=== PATIENT | female | born 2005 | race Caucasian/White ===

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

== ENCOUNTER 2024-09-13 11:48 | Emergency (ER) | payer SELFPAY ==
[2024-09-13 11:56] VITALS: BP 119/63; PULSE 68; RESP 20; TEMP 36.8; O2SAT 100
[2024-09-13 12:17] VITALS: BP 119/63; PULSE 68; RESP 20; TEMP 36.8; O2SAT 100
--- NOTE | 2024-09-13 12:30 | ED_ITS ---
HPI - URI/Sore Throat General Chief Complaint: Upper Respiratory Infection Stated Complaint: Ear ache/cough/nose Time Seen by Provider: 09/13/24 12:30 Source: patient, RN notes reviewed and old records reviewed Mode of arrival: ambulatory Limitations: no limitations History of Present Illness HPI Narrative: 19 year old female accompanied by family with complaints of over one week duration of head congestion and drainage which she noted to be bloody at times, sinus pressure and frontal headache, some cough and increase in the left ear pain with some yellowish drainage noted from ear. Patient reports that she has not had any fevers. Patient reports that she has been taking Tylenol and OTC cold and flu medication for her symptoms with no improvement. MD elicited complaint: cough, rhinorrhea, nasal congestion and other (left ear pain) Onset (ago): week(s) (greater than one week) Severity: severe (pain left ear) Description of mucous: clear Able to tolerate fluids by mouth: Yes Treatments prior to arrival: acetaminophen and other (OTC cold and flu medication) Related Data Home Medications Medication Instructions Recorded Confirmed etonogestrel 68 mg subdermal 1 implant subdermal ONCE 02/10/21 09/13/24 implant (Nexplanon) Allergies Allergy/AdvReac Type Severity Reaction Status Date / Time No Known Allergies Allergy Verified 09/13/24 12:12 Review of Systems Review of Systems: CONSTITUTIONAL: Reports malaise, no chills, sweats, or fever. EYES: Denies visual changes, redness, or discharge. ENT: Reports rhinorrhea, congestion, sinus pain,left otalgia and no sore throat. CARDIOVASCULAR: Denies chest pain, palpitations, or edema. RESPIRATORY: Reports cough.? Denies dyspnea. GASTROINTESTINAL: Denies abdominal pain, nausea, vomiting, diarrhea SKIN: Denies rash or itching. MUSCULOSKELETAL: Denies myalgia. NEUROLOGIC: reports headache. All systems reviewed & are unremarkable except as noted in HPI and below PMFSH Past Medical History Medical History Anxiety Irritability and anger Surgical History Surgical History History of placement of ear tubes History of repair of congenital cleft palate X3 Social History Social History Smoking status: Never smoker Second hand tobacco smoke exposure: Yes Alcohol intake: never Substance use: never Living arrangements: with family Gender identity (if verbalized by the patient): Female Comments At time of signature, agree with nursing past medical, surgical, social and family history. There is no relevant family history pertinent to the presenting complaint Exam Narrative: GENERAL: Well-appearing, well-nourished, and in no acute distress. HEAD: Normocephalic EYES: PERRLA, conjunctivae clear ENT: Nares clear, turbinates edematous and erythematous, clear discharge, sinus pressure and frontal headache. Mucous membranes moist., TM's pearly young with dull light reflex bilaterally ; no tragal tenderness some soft wax noted to left ear. Oropharynx erythematous without lesions. Tonsils not enlarged and without exudate, no drooling, no hoarseness, no trismus, uvula midline.post nasal drainage. NECK: Supple. No lymphadenopathy CHEST: Clear to auscultation, breath sounds equal. No wheezing, rhonchi, rales, or stridor. No respiratory distress, speaks in full sentences.cough SAO2 100% on room air HEART: Regular rate and rhythm. No murmur heard. SKIN: Warm, dry, no rash. NEURO: Alert and oriented x3. PSYCH: Normal mood and affect Course Course Emergency Course: Patient is aware of diagnosis, understands and agrees to treatment plan.? Anticipatory guidance given.? Patient agrees to follow-up as directed and is aware of reasons to seek care at the emergency department. Portions of this record may have been created with voice recognition software Level of Care: Express Care Visit Vital Signs Vital signs: Vital Signs Temperature 36.8 C 09/13/24 11:56 Pulse Rate 68 09/13/24 11:56 Respiratory Rate 20 09/13/24 11:56 Blood Pressure 119/63 09/13/24 11:56 Pulse Oximetry 100 09/13/24 11:56 Oxygen Delivery Room Air 09/13/24 11:56 Temperature 36.8 C 09/13/24 12:17 Pulse Rate 68 09/13/24 12:17 Respiratory Rate 20 09/13/24 12:17 Blood Pressure 119/63 09/13/24 12:17 Pulse Oximetry 100 09/13/24 12:17 Oxygen Delivery Room Air 09/13/24 12:17 Reviewed MDM - URI/Sore Throat MDM Narrative Medical decision making narrative: Differential diagnosis considered: Frausto virus, strep pharyngitis, allergic rhinitis, upper respiratory tract infection, sinusitis, rhinosinusitis, nasopharyngitis. viral pharyngitis, otitis media, otitis externa, pneumonia, bronchitis, viral cough syndrome, viral syndrome, and influenza.? Exam findings show no acute concerns or changes; patient is non-toxic appearing and is in no distress.? Patient is appropriate for outpatient treatment and follow-up. Differential Diagnosis Differential diagnosis: Likely upper respiratory infection, otitis media, sinusitis, viral infection and other (cough, left otalgia) Medical Records Attestation: I reviewed the patient's medical records. Lab Data Attestation: I reviewed the patient's lab results. Critical Care Time Critical Care Time Critical Care Time: No Discharge Plan Discharge Clinical Impression: Sinusitis, Otalgia, left ear Patient Disposition: Home, Self-Care Condition: Stable Instructions: Antibiotic Form, Sinusitis (ED), Earache (ED) Additional Instructions: Increase fluids especially juices and water [id number] cough and cold medicine of your choice for your symptoms Zyrtec Claritin or Halina daily Tylenol or ibuprofen for any fever pain heat to the face 20-30 minutes 4-6 times a day for pain Salt water gargles, throat lozenges or throat sprays as desired Antibiotic as directed--finished the medication If your symptoms persist, change or worsen significantly before you can contact your personal physician then please, without delay, go to the emergency department for further evaluation. Follow-up with PCP in 7-10 days or sooner if needed Prescriptions: New amoxicillin 875 mg tablet 875 mg PO Q12H Qty: 20 0RF No Action Nexplanon 68 mg Implant 1 implant SUBDERMAL ONCE Follow-up/Referrals: PHYSICIAN,BUSINESS DATABASE ANALYST [Primary Care Provider] - Time of Disposition: 13:06 [place] Coma Scale Eyes: Open Verbal: Oriented and Alert Motor: Follows Commands Ina Coma Total Score: 15
== END 2024-09-13 13:10 | disposition home or self-care (01) ==
PROVIDERS: Emergency Provider Registered Nurse
DX: J32.9 Chronic sinusitis, unspecified (principal); H92.02 Otalgia, left ear
CPT/HCPCS: 99213; G0463

== ENCOUNTER 2024-10-28 13:57 | Emergency (ER) | payer SELFPAY ==
[2024-10-28 14:05] VITALS: BP 121/59; PULSE 78; RESP 16; TEMP 36.9; O2SAT 100
--- NOTE | 2024-10-28 14:32 | ED.EAR ---
HPI - Ear Problem General Chief complaint: Ear Stated complaint: Headache Time Seen by Provider: 10/28/24 14:32 Source: patient Mode of arrival: ambulatory Limitations: no limitations History of Present Illness HPI Narrative: 19 y/o female presented for c/o headache and bilateral ear pain x6 days. Taking Tylenol and ibuprofen without relief. Also taking OTC BCP from [facility], which she discontinued 2 days ago but did not have relief in pain. Endorses nausea and 'not feeling well' today. MD Complaint: ear pain Related Data Home Medications ?Medication ?Instructions ?Recorded ?Confirmed ?Last Taken ?Type No Home Medications 10/28/24 10/28/24 Unknown History Allergies Allergy/AdvReac Type Severity Reaction Status Date / Time No Known Allergies Allergy Verified 10/28/24 14:24 Review of Systems Review of Systems: CONSTITUTIONAL: Denies malaise, chills, or fever. EYES: Denies visual changes, redness, or discharge. ENT: Denies rhinorrhea, congestion, sinus pain, and sore throat. Reports ear pain CARDIOVASCULAR: Denies chest pain, palpitations, or edema. RESPIRATORY: Denies cough or dyspnea. GASTROINTESTINAL: Denies abdominal pain, vomiting, diarrhea SKIN: Denies rash or itching. MUSCULOSKELETAL: Denies myalgia. NEUROLOGIC: reports headache. All systems reviewed & are unremarkable except as noted in HPI and below PMFSH Past Medical History Medical History Irritability and anger Anxiety Surgical History Surgical History History of placement of ear tubes History of repair of congenital cleft palate X3 Social History Social History Smoking status: Never smoker Second hand tobacco smoke exposure: Yes Alcohol intake: never Substance use: never Living arrangements: with family Gender identity (if verbalized by the patient): Female Comments At time of signature, agree with nursing past medical, surgical, social and family history. There is no relevant family history pertinent to the presenting complaint Exam Narrative: GENERAL: Well-appearing EYES: PERRLA, conjunctivae clear ENT: Nares clear. Mucous membranes moist. TMs pearly young with dull light reflex bilaterally; no tragal tenderness. Oropharynx not erythematous without lesions. no drooling, no hoarseness, no trismus, uvula midline. NECK: Supple. No lymphadenopathy CHEST: Clear to auscultation, breath sounds equal. No wheezing, rhonchi, rales, or stridor. No respiratory distress, speaks in full sentences. HEART: Regular rate and rhythm. No murmur heard. SKIN: Warm, dry, no rash. NEURO: Alert and oriented x3. PSYCH: Normal mood and affect Course Course Emergency Course: Patient is aware of diagnosis, understands and agrees to treatment plan. Anticipatory guidance given. Patient agrees to follow-up as directed and is aware of reasons to seek care at the emergency department. Portions of this record may have been created with voice recognition software Level of Care: Express Care Visit Vital Signs Vital signs: Vital Signs Temperature 98.5 F 10/28/24 14:05 Pulse Rate 78 10/28/24 14:05 Respiratory Rate 16 10/28/24 14:05 Blood Pressure 121/59 L 10/28/24 14:05 Pulse Oximetry 100 10/28/24 14:05 Oxygen Delivery Room Air 10/28/24 14:05 Temperature 98.5 F 10/28/24 14:05 Pulse Rate 78 10/28/24 14:05 Respiratory Rate 16 10/28/24 14:05 Blood Pressure 121/59 L 10/28/24 14:05 Pulse Oximetry 100 10/28/24 14:05 Oxygen Delivery Room Air 10/28/24 14:05 Reviewed Medical Decision Making MDM Narrative Medical decision making narrative: neg strep. Advised supportive measures and signs/symptoms to go to the ER. Patient is appropriate for outpatient treatment and follow-up. Differential Diagnosis Differential Diagnosis: Coronavirus, strep pharyngitis, allergic rhinitis, upper respiratory tract infection, sinusitis, rhinosinusitis, nasopharyngitis, viral pharyngitis, otitis media, otitis externa, eustachian tube dysfunction, foreign body, cerumen impaction. Vital Signs Vital Signs: Vital Signs Temperature 98.5 F 10/28/24 14:05 Pulse Rate 78 10/28/24 14:05 Respiratory Rate 16 10/28/24 14:05 Blood Pressure 121/59 L 10/28/24 14:05 Pulse Oximetry 100 10/28/24 14:05 Oxygen Delivery Room Air 10/28/24 14:05 Temperature 98.5 F 10/28/24 14:05 Pulse Rate 78 10/28/24 14:05 Respiratory Rate 16 10/28/24 14:05 Blood Pressure 121/59 L 10/28/24 14:05 Pulse Oximetry 100 10/28/24 14:05 Oxygen Delivery Room Air 10/28/24 14:05 Discharge Plan Discharge Clinical Impression: Headache Patient Disposition: Home, Self-Care Condition: Stable Instructions: Antibiotic Form, General Headache (ED) Additional Instructions: Recommend Flonase spray and Zyrtec (or Claritin/Halina) Tylenol 1000mg , ibuprofen 600 mg every 8 hours as needed for pain Symptomatic treatment includes: rest, fluids, and increase humidity of the air at home. Follow up with your primary care provider in 1 week. Go to the ER for worsening symptoms or concerns. Patient Language: Somali Prescriptions: No Action No Home Medications Follow-up/Referrals: PHYSICIAN,MILLED RICE BROKER [Primary Care Provider] - Time of Disposition: 14:41
--- OUTSIDE RECORDS SUMMARY | 2024-11-01 10:43 | XMS_ITS | Referral Summary ---
Author Organization [facility] Address [address] [place] [address] Care Team Providers Care Data Warehousing Engineer Name Role Phone Unavailable Primary Care Provider Unavailabl e Source Comments [facility],non-owned Affiliates and Associated Physician Practices is amultiple site organization consisting of ambulatory clinics and hospital sitesin [place], [place], [place] and [place]. This disclosure is being madepursuant to the Care Everywhere program and may not contain all information available regarding this patient. Last updated 18.[facility] [employer] Social History Tobacco Use Types Packs/Day Years Used Date Smoking Tobacco: Never Assessed Sex and Gender Information Value Date Recorded Sex Assigned at Not on file Gender Identity Not on file Sexual Orientation Not on file Plan of Treatment Not on file
--- OUTSIDE RECORDS SUMMARY | 2024-11-01 10:43 | XMS_ITS | Continuity of Care Document ---
Author Organization [facility] Address [address] [place] [address] Phone Care Team Providers Care Pe Electrical Engineer Name Role Phone Romeo OD, Edilberto Unavailable Unavailable Procedures Procedure Date Eye Exam & Treatment Refraction Eye Exam & Treatment Refraction Eye Exam, New Patient Refraction Advance Directives Directive Yes / No Effective Date File Name No Information Encounters Encounter Description Practice Location Reason(s) For Visit Diagnoses Date Provider Providers Copied on Encounter [facility], [address] [place] [address] [address], [place], [place], [id number], tel:[phone] [facility] No Information 4-201 0 Romeo OD Edilberto. [address], [place], [place], [facility], [place]. tel:[phone] [facility], [address] [place] [address] [address], [place], [place], [id number], [place] tel:[phone] [facility] [place] No Information 2-200 9 Romeo OD Edilberto. [address], [place], [address], [place]. tel:[phone] [facility], [address] [place] [address] [address], [place], [place], [id number], tel:[phone] [facility] No Information 9-200 8 Romeo OD Edilberto. [address], [place], [address], [place]. tel:[phone] Family History Family Member Type Diagnosis Age At Onset No Information Payers Payer name Insurance type Covered alliance party ID Authoriza tibrad(s) Medicaid [facility] [id number] Social History Type Description Quantity Date Captured Comments Sex Female Smoking Status No Information Chief Complaint And Reason For Visit No Information Reason For Referral Reason For Referral No Information History Of Present Illness Encounter Date Complaint History Of Prese nt Illness No Information Functional Status Date Functional Assessmen t No Information Instructions Date Instruction Additional Infor mation No Information Assessments Type Assessment Date No Information Patient Care Teams Name Effective Dates (start - stop) Status Members No Information
--- OUTSIDE RECORDS SUMMARY | 2024-11-01 10:43 | XMS_ITS | Clinical Summary ---
Author Organization [facility] Address [address] [place] [address] Care Team Providers Care [place] Name Role Phone No, Physician Primary Care Provider [phone] Allergies No known active allergies Medications nitrofurantoin monohydrate (MACROBID) 100 mg capsule Take 1 capsule (100 mg total) by mouth 2 (two) times a day 10 capsule 07/21/20 21 Active ondansetron ODT (ZOFRAN-ODT) 4 mg disintegrating tablet Dissolve 1 tablet oral every 4 hours as needed for nausea or vomiting. 15 tablet 07/21/20 21 Active benzonatate (TESSALON) 100 mg capsuleIndications :Cough Take 1 capsule (100 mg total) by mouth every 8 (eight) hours 21 capsule 09/03/20 23 Active ondansetron ODT (ZOFRAN-ODT) 4 mg disintegrating tablet Take 1 tablet (4 mg total) by mouth every 8 (eight) hours as needed for nausea Collaborating physician Fernando García MD 10 tablet 07/17/20 24 Active Active Problems Problem Noted Date Diagnosed Date Urinary tract infection in female 07/17/2024 Vaginal irritation 07/17/2024 Dysfunction of eustachian tube 01/17/2017 Cleft palate, unspecified 06/14/2014 Surgical History Surgery Date Site/Laterality Comments TYMPANOSTOMY TUBE PLACEMENT Ear Pressure Equalization Tube, Insertion, Bilaterally - (Added by TW Conv) TYMPANOSTOMY TUBE PLACEMENT Ear Pressure Equalization Tube, Insertion, Bilaterally - (Added by TW Conv) PALATOPLASTY Palatoplasty For Cleft Palate - (Added by TW Conv) Social History Tobacco Use Types Packs/Day Years Used Date Smoking Tobacco: Never Personal Safety Answer Date Recorded Have you ever been in or are you currently in a harmful physical or emotional relationship or is someone making you feel afraid or unsafe? 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 Gender Identity Not on file Sexual Orientation Not on file Obstetrics History Last Filed Vital Signs Vital Sign Reading Time Taken Comments Blood Pressure 136/77 07/17/2024 8:20 PM CDT Pulse 92 07/17/2024 8:20 PM CDT Temperature 36.6 ??C (97.9 ??F) 07/17/2024 5:55 PM CD T Respiratory Rate 16 07/17/2024 8:20 PM CDT Oxygen Saturation 100% 07/17/2024 5:55 PM CDT Inhaled Oxygen Concentration - - Weight 59 kg (130 lb) 07/17/2024 5:55 PM CDT Height 162.6 cm (5' 4 ) 07/17/2024 5:55 PM CDT Body Mass Index 22.31 07/17/2024 5:55 PM CDT Plan of Treatment Health Maintenance Due Date Last Done Comments Depression Screening 2004 Hepatitis C Screening 2004 Meningococcal B Vaccine (1 o f 2 - Patient Seeks Protection) 2020 Regular Well Visit/Exam 18-64 2022 Influenza Vaccine (#1) 2024 9, 06/16/2016, 12/03/2009, Additional history exists DTaP/Tdap/Td Vaccine (7 - Td or Tdap) 06/16/2026 06/16/2016, 05/22/2009, 10/19/2005, Additional history exists Pneumococcal vaccine <65 Completed 006, 07/19/2005, 2004, Additional history exists Varicella Vaccines Completed 05/25/2010, 07/19/2005 HPV Vaccines Completed 07/26/2017, 06/16/2016 Meningococcal Vaccine Completed 03/03/2022, 016 Insurance [employer] [place] [employer] [place] [place] Care Teams [place] Relationship Specialty Start Date End Date No, Physician PCP - General 07/17/24
--- OUTSIDE RECORDS SUMMARY | 2024-11-01 10:43 | XMS_ITS | Clinical Summary ---
Author Organization [facility] Address [address] [place] [address] Phone Care Team Providers Care Dovetail Machine Operator Name Role Phone Mel Merida MD Primary Care Provider + Allergies No known active allergies Medications hydrOXYzine (ATARAX) 10 MG Tablet TAKE 1 TABLET BY MOUTH EVERY MORNING AND TAKE 2 TABLETS BY MOUTH EVERY EVENING 1 Active fluticasone (FLONASE) 50 MCG/ACT Suspension 1-2 Sprays by Nasal route daily. Use in each nostril as directed. 9.9 mL 2 Active polyethylene glycol (MiraLax) 17 GM/SCOOP Powder Take 17 g by mouth daily. 17 g = 1 scoop. Dissolve in 4 -8 oz of water or other liquid. 507 g 2 Active Additional Information Patient not taking.Reported on 10/22/2022 pantoprazole (PROTONIX) 40 MG Tablet Delayed Response Take 1 Tablet by mouth daily. 30 Tablet 2 Active Additional Information Patient not taking.Reported on 10/22/2022 Benzoyl Peroxide (Benzoyl Peroxide Wash) 5 % Liquid Wet skin areas to be treated prior to administration. Gently massage into skin for 10 to 20 seconds, working into a full lather. Rinse thoroughly and pat dry. Use once daily in shower. 236 mL 2 3 Active Additional Information Patient not taking.Reported on 12/01/2022 Active Problems Problem Noted Date Diagnosed Date Ruptured tympanic membrane, bilateral 03/03/2022 Assessment & Plan (03/03/2022 3:14 PM CDT): Referred to ENT. Unsure if ever healed post T-tubes. Migraine without aura and wi thout status migrainosus, not intractable 12/18/2020 Assessment & Plan (03/03/2022 3:14 PM CDT): Now only occurring with ear pain- she has been referred to ENT as both TMs are ruptured, unsure if ever healed s/p T-tubes. Assessment & Plan (12/18/2020 5:40 PM POWERSAW SUPERVISOR): Pt told to keep headache diary to better assess frequency and associated symptoms. Red flags of headaches including pain awakening pt from sleep, vomiting after awakening, changes in vision or mental status, persistent vomiting, increasing frequency of headaches, and worsening of headaches discussed with patient and parent. Recommended eating 3 nutritious meals per day, drinking 60oz of water daily, and bettering her sleep hygiene. Pt to take Ibuprofen 400mg at start of headaches. Good sleep hygiene discussed with pt including dim lights, no electronics 1-2 hours before bedtime, no tv in bedroom, white noise machine, and reading books instead of being on handheld electronics. Acne 01/17/2020 Overview (01/17/2020): 11/2017- HC 2.5%. 09/2016- HC 1%. Assessment & Plan (03/03/2022 3:09 PM CDT): Only present on arms and back- BPO 5% wash prescribed. Mild depression 01/17/2020 Overview (01/17/2020): 09/2018- Recommended talking to school about bullying. Assessment & Plan (03/03/2022 3:13 PM CDT): PHQ9 positive for mild depression, no thoughts of self harm, suicide, homicide. Recommended counseling which pt refused. Will have her return to clinic in 3mo and see how she is doing. Allergic rhinitis 01/17/2020 Overview (01/17/2020): 05/2006- Claritin. Assessment & Plan (03/03/2022 3:09 PM CDT): Stable without meds. Acute midline low back pain without sciatica 07/2020 Assessment & Plan (03/03/2022 3:11 PM CDT): This problem is still occurring for pt intermittently. I did get a UA on her to ensure kidneys are doing well as her last UA samples have had abnormalities although no UTIs were present. I asked her to fix her posture as well. No spinal tenderness on exam. Will follow up in 3mo and see how pt doing. Assessment & Plan (10/19/2019 2:00 PM POWERSAW SUPERVISOR): Supportive care recommended with stretching, rest, and avoiding aggravating factors. Tylenol or Motrin as needed for pain. Return to office if symptoms worsen or do not improve. Menorrhagia 08/30/2019 Assessment & Plan (03/03/2022 3:11 PM CDT): Pt with irregular menses after getting implant. Asked pt to follow with OBGYN after tracking periods which she has not been doing. Seizures 03/06/2019 Assessment & Plan (03/03/2022 3:09 PM CDT): Mom states that this issue has been resolved since infancy for pt. Assessment & Plan (03/06/2019 8:56 AM CDT): Dad states that pt previously had seizures but has not had one in several years. He marked no for seizures on school physical form, but I corrected this statement as pt does have a history of them. Dad unsure where pt was followed for this, as there are no Care Everywhere records for any Neurologist. Dad asked to find out name of Neurologist so medical records can be obtained. Encounter for routine child health examination with abnormal findings 03/06/2019 Overview (01/17/2020): 07/2017- Last WCC with [facility]. Assessment & Plan (03/03/2022 3:12 PM CDT): Anticipatory guidance done including seat belt safety and water safety. Fire safety and bug avoidance discussed. Sexual preferences, safe sex practices, and discussion on healthy relationships discussed. Maintaining healthy friendships, bullying, and mental health also discussed. Handout given to reiterate important points. Routine lipid screening ordered. 5-2-1-0 (5 fruits and vegetables per day, less than 2 hours of screen time per day, at least 1 hour of activity per day, and 0 sweetened beverages) also discussed. Hearing and vision screens passed. Vaccines updated today. Hearing Screening Edited by: Meaghan Flannery 125hz 250hz 500hz 1000hz 2000hz 3000hz 4000hz 6000hz 8000hz Right ear 20 20 20 Left ear 20 20 20 Vision Screening Edited by: Meaghan Flannery Right eye Left eye Both eyes Without correction 20/25 20/25 20/25 Assessment & Plan (03/06/2019 9:08 AM CDT): Anticipatory guidance done including seat belt safety and water safety. Fire safety and bug avoidance discussed. Sexual preferences, safe sex practices, and discussion on healthy relationships discussed. Maintaining healthy friendships, bullying, and mental health also discussed. Handout given to reiterate important points. 5-2-1-0 (5 fruits and vegetables per day, less than 2 hours of screen time per day, at least 1 hour of activity per day, and 0 sweetened beverages) also discussed. Vaccines UTD. Vision screen passed. PHQ2 negative for depression. Told pt and Dad that all periods must now be recorded to ensure that pt is regular and has no other concerns around her period. Vision Screening Right eye Left eye Both eyes Without correction 20/25 20/25 20/20 Learning problem 03/06/2019 Assessment & Plan (03/03/2022 3:13 PM CDT): Pt doing well with IEP. Assessment & Plan (03/06/2019 9:07 AM CDT): Requested NASEEM from parent for school so we can obtain pt's IEP and see what diagnosis is and if we can further help in pt's treatment in any way. 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 Assessment & Plan (03/06/2019 9:00 AM CDT): Pt seeing Cleft Palate multidisciplinary team at [facility] as she is s/p cleft palate repair. Dad states next appointment is in March or April, coming up. Resolved Problems Problem Noted Date Diagnosed Date Resolved Date COVID-19 10/20/2021 03/03/2022 Assessment & Plan (10/20/2021 10:23 PM POWERSAW SUPERVISOR): Supportive care recommended with normal saline nose drops and Flonase to alleviate congestion, exposing pt to steam in bathrooms from showers or baths of family members, and use of humidifiers in bedrooms. Dad explained red flags of respiratory distress including labored breathing, increased respiratory rate, color change, and retractions. Supportive care recommended with Acetaminophen and Ibuprofen as needed for pain and fevers. Rapid COVID positive. Pt to isolate for 10 days from symptom onset. Explained limitations of this visit due to lack of physical exam in time of trying to limit COVID exposure. Pt and/or mat making machine tender verbalized understanding of these limitations and agreed to proceed with the treatment plan, with agreement to call or seek help if conditions worsen. Urinary frequency 02/26/2020 03/03/2022 Assessment & Plan (02/26/2020 4:13 PM CDT): 3 day history of urinary frequency and urgency. UA ordered with reflex to culture. Will call dad with results when they are received. Plan: - Encouraged adequate fluid intake - Don? t resist the urge to urinate, void at frequent intervals (every 3 to 4 hours). - Change tampons and sanitary napkins frequently. - Do not douche. - Wipe front to back, or from urethra/vagina toward the anus. Wheezing-associated respirat ory infection (WARI) 01/17/2020 03/03/2022 Overview (01/17/2020): 01/2006- Amoxil, Alb inhaler. School avoidance 10/19/2019 03/03/2022 Assessment & Plan (10/19/2019 2:03 PM POWERSAW SUPERVISOR): Discussed with mom and patient importance of going to school and that school excuses are not provided unless patient is febrile, vomiting, or having diarrhea within the 24 hours prior to the beginning of the school day. Discussed importance of counseling with mom and patient and offered Behavioral Health Navigator referral to get patient started in counseling. Mom would like to wait as patient's dad states that he has an appointment for patient to begin counseling at the beginning of November. Told mom that if this appointment does not happen or they change their minds and would like our assistance with starting counseling, to please call our office and I will put in the referral. Mother verbalized understanding. Note provided for school for today's visit only. Other specified condition influencing health 9 03/03/2022 Ringworm, body 04/23/2019 10/19/2019 Assessment & Plan (04/23/2019 8:23 AM CDT): Lesions appear consistent with tinea. Clotrimazole prescribed. Discussed use of topical cream with patient. Call office for worsening of symptoms or no improvement with cream. Failed hearing screening 03/06/2019 Assessment & Plan (03/06/2019 9:07 AM CDT): Dad told that he should inform [facility] ENT that pt failed her most recent hearing screen at PCP office as pt will be seeing ENT as part of her multidisciplinary cleft palate team. Hearing Screening 125hz 250hz 500hz 1000hz 2000hz 3000hz 4000hz 6000hz 8000hz Right ear 40 20 20 Left ear 40 20 20 Encounter for examination fo r admission to educational institution 03/06/2019 03/03/2022 Assessment & Plan (03/06/2019 10:07 AM CDT): School physical form completed today. Dysfunction of eustachian tube 01/17/2017 03/03/2022 Assessment & Plan (03/06/2019 9:02 AM CDT): Pt sees ENT at [facility] in conjunction with her Cleft Palate team. Dad states next appointment is in March or April. Immunizations Immunization Administration Dates Next Due DTAP VACCINE 10/19/2005,2004 DTAP-IPV 05/22/2009 DTAP/HEPB/IPV Vaccine 02/26/2005,2004 Hepatitis A, Pediatric, Unsp ecified Formulation 04/23/2008,01/26/2006 Hepatitis B Vaccine, Pediatric/adolescent 2004,2004 Hib Vaccine,unspecified Formulation 10/10,02/26/2005,2004,09/24 Human Papillomavirus (HPV) 9 -valent Vaccine 07/26/2017,06/16/2016 Inactivated Polio Vaccine 2004 Influenza Vaccine, Quadrivalent, PF 07/02/2019,0 06/16/2016 MMR Vaccine 10/19/2005 MMRV 05/25/2010 Meningococcal MCV4O 03/03/2022 Meningococcal Vaccine 06/16/2016 Novel [id number], Preservative-free, Injectable 12/03/2009,09/15/2009 Pneumococcal Vaccine Peds - 7 Valent ,07/19/2005,2004,09/24 TDAP Vaccine 06/16/2016 Varicella Vaccine Live 07/19/2005 Family History Medical History Relation Name Comments Bipolar Disorder Paternal Grandmother Diabetes Paternal Grandmother Relation Name Status Comments Paternal Grandmother Social History Tobacco Use Types Packs/Day Years Used Date Smoking Tobacco: Never Passive Smoke Exposure: Yes Smokeless Tobacco: Never Tobacco Cessation:Counseling Given: Not Answered Alcohol Use Standard Drinks/Week Comments No 0 (1 standard drink = 0.6 oz pur e alcohol) PHQ-2 Answer Date Recorded Total Score - Questions 1-9 4 02/08 Comments No Sex and Gender Information Value Date Recorded Sex Assigned at Not on file Legal Sex Female 1:12 PM CDT Gender Identity Not on file Sexual Orientation Not on file Last Filed Vital Signs Vital Sign Reading Time Taken Comments Blood Pressure 108/68 10/22/2022 7:35 AM POWERSAW SUPERVISOR Pulse 65 10/22/2022 7:35 AM POWERSAW SUPERVISOR Temperature 36.6 ??C (97.9 ??F) 10/22/2022 7:35 AM CS T Respiratory Rate 20 10/22/2022 7:35 AM POWERSAW SUPERVISOR Oxygen Saturation 99% 10/22/2022 7:35 AM POWERSAW SUPERVISOR Inhaled Oxygen Concentration - - Weight 56.7 kg (125 lb) 10/22/2022 7:35 AM POWERSAW SUPERVISOR Height 149.9 cm (4' 11 ) 10/22/2022 7:35 AM POWERSAW SUPERVISOR Body Mass Index 25.25 10/22/2022 7:35 AM POWERSAW SUPERVISOR Plan of Treatment Health Maintenance Due Date Last Done Comments Hepatitis C Virus (HCV) Screening 2004 Meningococcal B Immunization (1 of 2 - Standard) 2020 Influenza Immunization (#1) 2024 07/02/2019, 0 06/16/2016 SARS-COV-2 Immunization (1 - season) 2024 DTaP/Tdap/Td Immunization (7 - Td or Tdap) 06/16/2026 06/16/2016, 05/22/2009, 10/19/2005, Additional history exists Respiratory Syncytial Virus (RSV) Immunization (Adult) (1 - 1-dose 75+ series) 2079 Hepatitis B Immunization Completed 005, 2004, 2004, Additional history exists Pneumococcal Immunization Combined Aged Out 01/26/2006, 07/19/2005, 2004, Additional history exists No longer eligible based on patient's age to complete this topic Hepatitis A Immunization Discontinued 04/23/2008, 01/08 Polio (IPV) Immunization Discontinued 009, 02/26/2005, 2004, Additional history exists Measles Mumps Rubella (MMR) Immunization Discontinued 05/25/2010, 10/19/2005 Varicella Immunization Discontinued 05/25/2010, 2004 Human Papillomavirus (HPV) Immunization Completed 07/26/2017, 06/16/2016 Meningococcal Immunization (ACWY) Completed 03/03/2022, 06/16/2016 Rotavirus Immunization Aged Out No lo nger eligible based on patient's age to complete this topic Insurance Care Teams Dovetail Machine Operator Relationship Specialty Start Date End Date Mel Merida MD PCP - General Pediatrics 02/21/19
--- OUTSIDE RECORDS SUMMARY | 2024-11-01 10:43 | XMS_ITS | Referral Summary ---
Author Organization [facility] Address [address] [place] [address] Care Team Providers Care Infrastructure Security Architect Name Role Phone No, Physician Primary Care Provider [phone] Allergies No known active allergies Medications nitrofurantoin [...] eustachian tube 01/17/2017 Cleft palate, unspecified 06/14/2014 Social History Tobacco Use Types Packs/Day Years [...] on file Legal Sex Female 1:[address] MAN Gender Identity Not on file Sexual Orientation [...] 07/17/2024 5:55 PM CDT Plan of Treatment Not on file Insurance [employer] [place] Care Teams Infrastructure Security Architect Relationship Specialty Start Date End Date No, Physician PCP - General 07/17/24
--- OUTSIDE RECORDS SUMMARY | 2024-11-01 10:43 | XMS_ITS | Clinical Summary ---
Author Organization [facility] Address [address] [place] [address] Care Team Providers Care Poker Supervisor Name Role Phone Unavailable Primary Care Provider Unavailabl e Source Comments [facility],non-owned Affiliates and Associated Physician Practices is amultiple site organization consisting of ambulatory clinics and hospital sitesin [place], [place], [place] and [place]. This disclosure is being madepursuant to the Care Everywhere program and may not contain all information available regarding this patient. Last updated 18.[facility] Contacts+ Social History Tobacco Use Types Packs/Day Years Used Date Smoking Tobacco: Never Assessed Sex and Gender Information Value Date Recorded Sex Assigned at Not on file Gender Identity Not on file Sexual Orientation Not on file Plan of Treatment Health Maintenance Due Date Last Done Comments HIV SCREENING 2019 HPV VACCINE (1 - 3-dose series) 2019 CHLAMYDIA/GONORRHEA SCREENING 2020 MENINGOCOCCAL (Group B) VACCINE (1 of 2 - Standard) 2020 HEPATITIS C SCREENING 07/12/2022 DTAP/TDAP/TD VACCINES (1 - Tdap) 2023 HEPATITIS B VACCINE (1 of 3 - 19+ 3-dose series) 2023 COVID-19 VACCINE (1 - 2023-2 5 season) 2024 INFLUENZA VACCINE (#1) 2024 , 06/16/2016 DEPRESSION SCREENING 10/10/2024 ZOSTER VACCINE (1 of 2) 2054 HIB VACCINE Aged Out No longer eligi ble based on patient's age to complete this topic MENINGOCOCCAL VACCINE Aged Out No kaylee sofia eligible based on patient's age to complete this topic PNEUMOCOCCAL VACCINE Aged Out No long er eligible based on patient's age to complete this topic
--- OUTSIDE RECORDS SUMMARY | 2024-11-01 10:43 | XMS_ITS | Patient Health Summary ---
Author Organization [facility] Address [address] [place] [address] Care Team Providers Care Sizing Sprayer Name Role Phone Unavailable Primary Care Provider Unavailabl e Note from [facility],non-owned Affiliates and Associated Physician Practices is amultiple site organization consisting of ambulatory clinics and hospital sitesin [place], [place], [place] and [place]. This disclosure is being madepursuant to the Care Everywhere program and may not contain all information available regarding this patient. Last updated 18.[facility] Social History Tobacco Use Types Packs/Day Years Used Date Smoking Tobacco: Never Assessed Sex and Gender Information Value Date Recorded Sex Assigned at Not on file Gender Identity Not on file Sexual Orientation Not on file
== END 2024-10-28 14:55 | disposition home or self-care (01) ==
PROVIDERS: Emergency Provider Nurse Practitioner Family
DX: R51.9 Headache, unspecified (principal)
CPT/HCPCS: 87081; 99213; G0463

== ENCOUNTER 2024-11-29 15:53 | Emergency (ER) | payer MEDICAID, SELFPAY ==
--- OUTSIDE RECORDS SUMMARY | 2024-11-29 15:55 | XMS_ITS | Patient Health Summary ---
Author Organization [facility] Address [address] [place] [address] Care Team Providers Care Manager Floral Name Role Phone Unavailable Primary Care Provider Unavailabl e Note from [facility],non-owned Affiliates and Associated Physician Practices is amultiple site organization consisting of ambulatory clinics and hospital sitesin [place], [place] and [place]. This disclosure is being madepursuant to the Care Everywhere program and may not contain all information available regarding this patient. Last updated 18.[facility] Social History Tobacco Use Types Packs/Day Years Used Date Smoking Tobacco: Never Assessed Sex and Gender Information Value Date Recorded Sex Assigned at Not on file Gender Identity Not on file Sexual Orientation Not on file
--- OUTSIDE RECORDS SUMMARY | 2024-11-29 15:55 | XMS_ITS | Continuity of Care Document ---
Author Organization [facility] Address [address] [place] [address] Phone Care Team Providers Care Plate Molder Name Role Phone Romeo OD, Edilberto Unavailable Unavailable Procedures Procedure Date Eye Exam & Treatment Refraction Eye Exam & Treatment Refraction Eye Exam, New Patient Refraction Advance Directives Directive Yes / No Effective Date File Name No Information Encounters Encounter Description Practice Location Reason(s) For Visit Diagnoses Date Provider Providers Copied on Encounter [facility], [address] [place] [address] [address], [place], [place], [id number], tel:[phone] [facility] No Information 4-201 0 Romeo OD Edilberto. [address], [place], [place], [facility], [place]. tel:[phone] [facility], [address] [place] [address] [address], [place], [place], [id number], [place] tel:[phone] [facility] [address] No Information 2-200 9 Romeo OD Edilberto. [address], [place], [address], [place]. tel:[phone] [facility], [address] [place] [address] [address], [place], [place], [id number], tel:[phone] [facility] No Information 9-200 8 Romeo OD Edilberto. [address] [facility] , [address], [place], [address], [place]. tel:[phone] Family History Family Member Type Diagnosis Age At Onset No Information Payers Payer name Insurance type Covered alliance party ID Authoriza tibrad(s) Medicaid [facility] [id number] Social History Type Description Quantity Date Captured [...]
--- OUTSIDE RECORDS SUMMARY | 2024-11-29 15:55 | XMS_ITS | Clinical Summary ---
Author Organization [facility] Address [address] [place] [address] Care Team Providers Care Stock Worker Name Role Phone No, Physician Primary Care Provider [phone] Allergies No known active allergies Medications nitrofurantoin [...] on file Legal Sex Female 1:07 AM POSTMASTER RELIEF Gender Identity Not on file Sexual Orientation Not on file Obstetrics History Last Filed Vital Signs Vital Sign Reading Time Taken Comments Blood Pressure 136/77 07/17/2024 8:20 PM CDT Pulse 92 07/17/2024 8:20 PM CDT Temperature 36.6 C (97.9 F) 07/17/2024 5:55 PM CDT Respiratory Rate 16 07/17/2024 8:20 PM CDT [...] B Vaccine (1 o f 2 - Standard) 2020 Regular Well Visit/Exam 18-64 2022 Influenza Vaccine (#1) 2024 9, 06/16/2016, 12/03/2009, Additional history exists DTaP/Tdap/Td Vaccine (7 - Td or Tdap) 06/16/2026 06/16/2016, 05/22/2009, 10/19/2005, Additional history exists Hepatitis B Screening Completed 02/26/2005 , 2004, 2004, Additional history exists Pneumococcal vaccine <65 Completed 006, 07/19/2005, 2004, Additional history exists Varicella Vaccines Completed 05/25/2010, 07/19/2005 HPV Vaccines Completed 07/26/2017, 06/16/2016 Meningococcal Vaccine Completed 03/03/2022, 016 Insurance [employer] OPEN ACCESS [place] [employer] [place] Care Teams Stock Worker Relationship Specialty Start Date End Date No, Physician PCP - General 07/17/24
--- OUTSIDE RECORDS SUMMARY | 2024-11-29 15:55 | XMS_ITS | Clinical Summary ---
Author Organization [facility] Address [address] [place] [address] Phone Care Team Providers Care Gallery Or Museum Guide Name Role Phone Mel Merida MD Primary [...] T-tubes. Assessment & Plan (12/18/2020 5:40 PM BOX STACKER): Pt told to keep headache diary to [...] doing. Assessment & Plan (10/19/2019 2:00 PM BOX STACKER): Supportive care recommended with stretching, rest, and [...] 03/06/2019 Overview (01/17/2020): 07/2017- Last WCC with [facility]. Assessment & Plan (03/03/2022 3:12 PM [...] (03/03/2022 3:12 PM CDT): Cleft number at [facility] given to Mom to schedule as pt needs to follow up there. Assessment & Plan (03/06/2019 9:00 AM CDT): Pt seeing Cleft Palate multidisciplinary team at [facility] as she is s/p cleft palate repair. Dad states next appointment is in March or April, coming up. Resolved Problems Problem Noted Date Diagnosed Date Resolved Date COVID-19 10/20/2021 03/03/2022 Assessment & Plan (10/20/2021 10:23 PM BOX STACKER): Supportive care recommended with normal saline nose [...] trying to limit COVID exposure. Pt and/or nonfarm animal caretaker verbalized understanding of these limitations and agreed [...] Plan: - Encouraged adequate fluid intake - Don t resist the urge to urinate, void at frequent intervals (every 3 to 4 hours). - Change tampons and sanitary napkins frequently. - Do not douche. - Wipe front to back, or from urethra/vagina toward the anus. Wheezing-associated respirat ory infection (WARI) 01/17/2020 03/03/2022 Overview (01/17/2020): 01/2006- Amoxil, Alb inhaler. School avoidance 10/19/2019 03/03/2022 Assessment & Plan (10/19/2019 2:03 PM BOX STACKER): Discussed with mom and patient importance of [...] CDT): Dad told that he should inform [facility] ENT that pt failed her most recent [...] 9:02 AM CDT): Pt sees ENT at [facility] in conjunction with her Cleft Palate team. [...] Meningococcal MCV4O 03/03/2022 Meningococcal Vaccine 06/16/2016 Novel [id number], Preservative-free, Injectable 12/03/2009,09/15/2009 Pneumococcal Vaccine Peds - [...] Comments Blood Pressure 108/68 10/22/2022 7:35 AM BOX STACKER Pulse 65 10/22/2022 7:35 AM BOX STACKER Temperature 36.6 C (97.9 F) 10/22/2022 7:35 AM BOX STACKER Respiratory Rate 20 10/22/2022 7:35 AM BOX STACKER Oxygen Saturation 99% 10/22/2022 7:35 AM BOX STACKER Inhaled Oxygen Concentration - - Weight 56.7 kg (125 lb) 10/22/2022 7:35 AM BOX STACKER Height 149.9 cm (4' 11 ) 10/22/2022 7:35 AM BOX STACKER Body Mass Index 25.25 10/22/2022 7:35 AM BOX STACKER Plan of Treatment Health Maintenance Due Date [...] patient's age to complete this topic Insurance [place] [address] [address] [place] [address] Care Teams Gallery Or Museum Guide Relationship Specialty Start Date End Date Mel Merida MD PCP - General Pediatrics 02/21/19
--- OUTSIDE RECORDS SUMMARY | 2024-11-29 15:55 | XMS_ITS | Clinical Summary ---
Author Organization [facility] Address [address] [place] [address] Care Team Providers Care Industrial Relations Analyst Name Role Phone Unavailable Primary Care Provider Unavailabl e Source Comments [facility],non-owned Affiliates and Associated Physician Practices is amultiple site organization consisting of ambulatory clinics and hospital sitesin [place], [place], [place] and [place]. This disclosure is being madepursuant to the Care Everywhere program and may not contain all information available regarding this patient. Last updated 18.[facility] [employer] Social History Tobacco Use Types Packs/Day Years [...]
--- OUTSIDE RECORDS SUMMARY | 2024-11-29 15:55 | XMS_ITS | Referral Summary ---
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
--- OUTSIDE RECORDS SUMMARY | 2024-11-29 15:55 | XMS_ITS | Referral Summary ---
Author Organization [facility] Address [address] [place] [address] Care Team Providers Care Loss Control Engineer Name Role Phone Unavailable Primary Care Provider Unavailabl e Source Comments [facility],non-owned Affiliates and Associated Physician Practices is amultiple site organization consisting of ambulatory clinics and hospital sitesin [place], [place], [place] and [place]. This disclosure is being madepursuant to the Care Everywhere program and may not contain all information available regarding this patient. Last updated 18.[facility] [employer] Social History Tobacco Use Types Packs/Day Years Used Date Smoking Tobacco: Never Assessed Sex and Gender Information Value Date Recorded Sex Assigned at Not on file Gender Identity Not on file Sexual Orientation Not on file Plan of Treatment Not on file
--- OUTSIDE RECORDS SUMMARY | 2024-11-29 16:02 | XMS_ITS | Data Portability ---
Author Organization [facility] Address [address] [place] [address] Assessment No assessment recorded. Plan of Treatment Reminders Order Date Submit Date Provider Last Modified By Organization Details Last Modified Time Details Appointments NEW ALONZO T 30 2024 09:00A M Aby Cooney APN, RELIGIOUS ASSISTANT-C Not available Not available Not available Lab SARS CoV 2 RNA (COVID -19), QL, core composer feeder-PC R, respir atory specim en - pt had a runny nose and conges tion, loss of taste, needs neg test to return back to school [facility] 1015 on 2020 021 [email or web address] [facility] (Lab), [address] [place], [address], 01/30/2021 15:30:55 SARS CoV 2 RNA (COVID -19), QL, core composer feeder-PC R, respir atory specim en - [email or web address] 2pm 2019 020 CINTHIA [facility] (Lab), [address] [place], [address], 07/26/2020 19:02:21 Referral None record ed. Procedures None record ed. Surgeries None record ed. Imaging None record ed. Medication Orders None record ed. Patient TargetsNo targets recorded. Patient Instructions Encounter Date Encounter Id Patient Instructions Last Modified By Organization Details Last Modified Time 07/25/2020 [id number] Reviewed the following recommendations: -Stay home and separate from others as much as possible. -Monitor your symptoms and seek medical attention for trouble breathing, persistent chest pain, confusion, or bluish lips or face. -Wear a mask if you must be around other people. -Wash your hands often for 20 seconds with soap and water and clean high-touch surfaces daily -You may discontinue home isolation if your symptoms are improving, it has been 7 days since symptoms started, and you have been fever free for at least 3 days. [email or web address] Not available 07/25/2020 13:52:56 01/30/2021 [id number] Reviewed the following recommendations: -Stay home and separate from others as much as possible. -Monitor your symptoms and seek medical attention for trouble breathing, persistent chest pain, confusion, or bluish lips or face. -Wear a mask if you must be around other people. -Wash your hands often for 20 seconds with soap and water and clean high-touch surfaces daily -You may discontinue home isolation if your symptoms are improving and it has been 10 days since symptoms started. [email or web address] Not available 01/30/2021 15:30:50 Reason for Referral None Reported. Results Created Date Observation Date Name Description Value Unit Range Abnormal Flag Note LastModifiedBy Organization Detail LastModifiedTime 07/25/20 20 07/25/2020 SARS CoV 2 RNA (COVI D-19) , QL, core composer feeder-P CR, respi rator y speci men sars - cov - 2 PCR NEGATI VE mL Not Available [facility] (Lab) [address] [place], [address], 07/26/2020 19:02:21 07/25/20 20 07/25/2020 SARS CoV 2 RNA (COVI D-19) , QL, core composer feeder-P CR, respi rator y speci men covidcom1 COMME NTS: This assay is desig enrrique to detec t the RdRp and N genes of SARS- CoV-2 using nucle ic acid ampli ficat ion. A negat ousmane resul t does not precl ude the possi bilit y of 2019- nCoV infec tion since the adequ acy of sampl e colle ction and/o r low viral burde n may resul t in the prese nce of viral nucle ic acids level s below the hedy tical sensi tivit y of this test metho d. Not Available [facility] (Lab) [address] [place], [address], 07/26/2020 19:02:21 07/25/20 20 07/25/2020 SARS CoV 2 RNA (COVI D-19) , QL, core composer feeder-P CR, respi rator y speci men covidcom2 Posit ousmane resul ts are indic ative of the prese nce of SARS- CoV-2 RNA and do not rule out bacte rial infec tion or co-in fecti on with other virus es. Not Available [facility] (Lab) [address] [place], [address], 07/26/2020 19:02:21 07/25/20 20 07/25/2020 SARS CoV 2 RNA (COVI D-19) , QL, core composer feeder-P CR, respi rator y speci men covidcom3 Test resul ts shoul d be used along with other clini esmer obser vatio ns, patie nt histo ry, epide miolo gical infor matio n and labor atory data in makin g the diagn osis. Not Available [facility] (Lab) [address] [facility], [place], [address], 07/26/2020 19:02:21 07/25/20 20 07/25/2020 SARS CoV 2 RNA (COVI D-19) , QL, core composer feeder-P CR, respi rator y speci men covidcom4 This test has recei terell FDA Emerg ency Use Autho rizat ion and has been verif ied by [facility] . This test is only autho rized for the durat ion of the decla ratio n and the circu mstan marty that exist to justi fy the autho rizat ion of the emerg ency use of in vitro diagn ostic tests for the detec tion of SARS- CoV-2 virus and/o r diagn osis of COVID -19 infec tion under secti on 564 (b) (1) of the Act. 11 U.S.C . 360bb b-3 (b) (1), unles s the autho rizat ion is termi nated or revok ed soone r. Not Available [facility] (Lab) [address] [place], [address], 07/26/2020 19:02:21 07/25/20 20 07/25/2020 SARS CoV 2 RNA (COVI D-19) , QL, core composer feeder-P CR, respi rator y speci men covidcom5 [facility] is certi fied under CLIA- 88 as quali fied to perfo rm high compl exity testi ng. This testi ng was perfo rmed in the [facility] [place] [address] (CLIA Licen se #[id number], CAP #[id number], AU-ID #[id number]). Not Available [facility] (Lab) [address] [place], [address], 07/26/2020 19:02:21 07/25/20 20 07/25/2020 SARS CoV 2 RNA (COVI D-19) , QL, core composer feeder-P CR, respi rator y speci men covidcom6 Facts heet for healt hcare provi ders: https ://ww w.fda .gov/ media /1362 56/do wnloa d Facts heet for patie nts: https ://ww w.fda .gov/ media /1362 57/do wnloa d Not Available [facility] (Lab) [address] [place], [address], 07/26/2020 19:02:21 Result Notes None recorded. Medical Equipment None Reported. Medications Name Sig Start Date Stop Date Status Note LastModified by Organization Details LastModified Time benzonatate 100 mg capsule TAKE 1 CAPSULE BY MOUTH EVERY 8 HOURS active Not Available Not Available No t Available methylpredniso lone 4 mg tablets in a dose pack TAKE BY MOUTH DIRECTED ON INSIDE OF PACKAGE active Not Available Not Available No t Available Vitals None Recorded Social History None recorded. Functional Status None recorded. Mental Status None recorded. Family History Nothing Reported. Medical History No medical history recorded. Gynecological HistoryNo gynecological history recorded. Obstetrics History GPAL:G 0 P 0 0 0 0 Past Encounters Encounter ID Performer Location Encounter Start Date Encounter Closed Date Diagnosis/Indication Diagnosis SNOMED-CT Code Diagnosis ICD10 Code Diagnosis Note [id number] MELIDA YADAV NP Faisal fel[address] [place] [address] 07/25/2020 11:51:13 07/28/2020 07:23:53 Suspected COVID-19 811817944 Z03.89 [id number] BI EsquivelNora feliz [address] [place] [address] 01/30/2021 12:51:32 02/02/2021 07:10:54 Suspected COVID-19 580029833 Z03.89 Viral screening 87021954 4 Z11.52 D/w pt the current pandemic of COVID-19 and call for social isolation in order to blunt the curve and minimize risk and spread. Encouraged patient and family to take restrictio ns seriously. They have verbalized understand ing of such. Health Concerns Section Related Observation LastModified by Organization Detai ls LastModified Time None Recorded Concern Status LastModified by Organization Details LastModified Time None Recorded Advance Directives Directive None Recorded Payers Encounter Date Sequence Insurance Name Policy Number Policy Bhandari Covered Member ID Bhandari Member ID Guarantor Name 07/25/2020 1 [place] [id number] Adair Carranza February [id number] 01/30/2021 1 [place] [id number] Adair Carranza February [id number] Notes Date Note Type Note Provider Name and Address Organization Details Recorded Time 07/25/2020 text/html COVID ScreeningReported bypatient.Onset/Durati on of fever:no fever Associated Symptoms:no cough; no shortness of breathCOVID-19 Symptoms February 2020Reported bypatient.COVID-19 Signs and Symptomscough resolved; fever resolved; shortness of breath resolved; chills resolved; repeated shaking with chills resolved; muscle pain resolved; headache resolved; sore throat resolved; loss of taste or smell resolved; vomiting or diarrhea resolved; fatigue resolved; anorexia resolved Associated Symptoms:no sputum production; no wheezing; no vomiting; no diarrhea; no body aches; no nausea; no change in mental status; no hypotension; no tachycardia;runny nose pt had a runny nose and congestion today and yesterday MELIDA YADAV NP Attn: Accounting,[address] [facility], [place], [address], [facility] 07/25/2020 13:53:23 01/30/2021 text/html COVID ScreeningReported bypatient.Onset/Durati on of fever:no fever Associated Symptoms:no cough; no shortness of breathCOVID-19 Symptoms February 2020Reported bypatient.COVID-19 Signs and Symptomscough resolved; fever resolved; shortness of breath resolved; chills resolved; repeated shaking with chills resolved; muscle pain resolved; headache resolved; sore throat resolved;new loss of taste or smell; vomiting or diarrhea resolved; fatigue resolved; anorexia resolved Associated Symptoms:no sputum production; no wheezing; no vomiting; no diarrhea; no body aches; no nausea; no change in mental status; no hypotension; no tachycardia;runny nose 15 yo female ,spoke via phone with C/O,pt had a runny nose and congestion, loss of taste, needs neg test to return back to school SHAHAB Lara NP Attn: Accounting,[address] [facility], [place], [address], [facility] 01/30/2021 15:34:03 OBGyn Episode No OBEpisode recorded.
--- OUTSIDE RECORDS SUMMARY | 2024-11-29 16:02 | XMS_ITS | Continuity of Care Document ---
Author Organization [facility] Address [address] [place] [address] Phone Care Team Providers Care Motors And Controls Tester Name Role Phone Romeo OD, Edilberto Unavailable Unavailable Procedures Procedure Date Eye Exam & Treatment Refraction Eye Exam & Treatment Refraction Eye Exam, New Patient Refraction Advance Directives Directive Yes / No Effective Date File Name No Information Encounters Encounter Description Practice Location Reason(s) For Visit Diagnoses Date Provider Providers Copied on Encounter [facility], [address] [place] [address] [address], [place], [place], [id number], tel:[phone] [facility] No Information 4-201 0 Romeo OD Edilberto. [address], [place], [place], [facility], [place]. tel:[phone] [facility], [address] [place] [address] [address], [place], [place], [id number], [place] tel:[phone] [facility] [address] No Information 2-200 9 Romeo OD Edilberto. [address], [place], [address], [place]. tel:[phone] [facility], [address] [place] [address] [address], [place], [place], [id number], tel:[phone] [facility] No Information 9-200 8 Romeo OD Edilberto. [address] [facility] , [address], [place], [address], [place]. tel:[phone] Family History Family Member Type Diagnosis Age At Onset No Information Payers Payer name Insurance type Covered democrat ID Authoriza tibrad(s) Medicaid [facility] [id number] Social History Type Description Quantity Date Captured [...]
--- NOTE | 2024-11-29 16:07 | ED_ITS ---
HPI - URI/Sore Throat General Stated Complaint: sore throat History of Present Illness HPI Narrative: 19-year-old female presented for complaint of sore throat. Onset this morning. Also reports bilateral ear pain. Has not taken anything for symptoms. Denies cough, shortness of breath, wheezing nausea, vomiting, fevers myalgia, or lethargy. Related Data Home Medications ?Medication ?Instructions ?Recorded ?Confirmed ?Last Taken ?Type No Home Medications 10/28/24 11/29/24 Unknown History Allergies Allergy/AdvReac Type Severity Reaction Status Date / Time No Known Allergies Allergy Verified 11/29/24 16:10 Review of Systems Review of Systems: CONSTITUTIONAL: Denies body aches, fever, chills, or sweats. EYES: Denies visual changes, redness, or discharge. ENT: Reports sore throat Denies rhinorrhea, congestion, or otalgia. CARDIOVASCULAR: Denies chest pain, palpitations, or edema. RESPIRATORY: Denies dyspnea. GASTROINTESTINAL: Denies abdominal pain, nausea, vomiting, or diarrhea. SKIN: Denies rash, itching, or wounds. MUSCULOSKELETAL: Denies back pain, joint pain, or myalgia. NEUROLOGIC: Denies headache PMFSH Past Medical History Medical History Irritability and anger Anxiety Surgical History Surgical History History of placement of ear tubes History of repair of congenital cleft palate X3 Social History Social History Smoking status: Never smoker Second hand tobacco smoke exposure: Yes Alcohol intake: never Substance use: never Living arrangements: with family Gender identity (if verbalized by the patient): Female Exam Narrative: GENERAL: well-appearing, no acute distress. EYES: conjunctivae clear ENT: Mucous membranes moist. TM pearly young with normal light reflex bilaterally; no tragal tenderness. Oropharynx erythematous without lesions. Tonsils not enlarged and without exudate. No drooling, no hoarseness, no trismus, uvula midline. No tripod positioning, hot potato voice, or soft palate swelling. NECK: Supple. No lymphadenopathy CHEST: Clear to auscultation, breath sounds equal. No respiratory distress, speaks in full sentences. HEART: Regular rate and rhythm. No murmur heard. SKIN: Warm, dry, no rash. NEURO: Alert and oriented x3. Course Course Emergency Course: Patient is aware of diagnosis, understands and agrees to treatment plan. Anticipatory guidance given. Patient agrees to follow-up as directed and is aware of reasons to seek care at the emergency department. Portions of this record may have been created with voice recognition software Level of Care: Express Care Visit MDM - URI/Sore Throat MDM Narrative Medical decision making narrative: neg strep result reviewed with pt. Advise supportive treatments. Patient is appropriate for outpatient treatment and follow-up. Differential Diagnosis Differential diagnosis: Likely upper respiratory infection, otitis media, sinusitis, viral infection, influenza and pharyngitis Discharge Plan Discharge Clinical Impression: Pharyngitis Patient Disposition: Home, Self-Care Condition: Stable Instructions: Antibiotic Form, Strep Throat (ED) Additional Instructions: Rapid strep swab was negative today You will be notified in a few days if the culture comes back positive for strep, and appropriate antibiotics will be called in at that time. if symptoms are due to a viral illness, it is not treated with antibiotics. Viral symptoms can be present for up to 10-14 days. Tylenol every 8 hours as needed for pain/fever Soft foods, cool liquids, warm tea. Gargle with warm saltwater twice a day. Chloraseptic spray and throat lozenges. Rest and stay hydrated. --Follow up with your PCP --Go to the ER immediately if you cannot swallow your saliva, trouble breathing/wheezing, throat swelling, pain is persistent and severe Patient Language: Persian Prescriptions: No Action No Home Medications Follow-up/Referrals: PHYSICIAN,RADIO MECHANIC APPRENTICE [Primary Care Provider] - Time of Disposition: 16:20
[2024-11-29 16:08] VITALS: BP 121/64; PULSE 89; RESP 16; TEMP 36.8; O2SAT 100
[2024-11-29 16:20] LABS: EDSTREPNEGPOS1 Negative (Negative)
== END 2024-11-29 16:24 | disposition home or self-care (01) ==
PROVIDERS: Emergency Provider Nurse Practitioner Family
DX: J02.9 Acute pharyngitis, unspecified (principal)
CPT/HCPCS: 87081; 87880; 99213; G0463

== ENCOUNTER 2025-09-09 11:54 | Emergency (ER) | payer OTHER, SELFPAY ==
[2025-09-09 12:08] VITALS: BP 137/66; PULSE 82; RESP 16; TEMP 36.7; O2SAT 99
--- NOTE | 2025-09-09 12:22 | ED_ITS ---
HPI - URI/Sore Throat General Chief Complaint: Upper Respiratory Infection Stated Complaint: Sore Throat/Headache Time Seen by Provider: 09/09/25 12:23 Source: patient, RN notes reviewed and old records reviewed Mode of arrival: ambulatory Limitations: no limitations History of Present Illness HPI Narrative: 20 year old female accompanied by boyfriend and his mother presents to express care with complaints of awakening this morning with headache and has had a sore throat for 1 day duration. Patient reports no known fevers has not taken any medication for her symptoms. MD elicited complaint: sore throat and other (headache) Onset (ago): day(s) (1) Severity: mild Able to tolerate fluids by mouth: Yes Treatments prior to arrival: none Related Data Home Medications ?Medication ?Instructions ?Recorded ?Confirmed ?Last Taken ?Type etonogestrel 68 mg subdermal 1 implant subdermal ONCE 07/06/21 07/06/21 Unknown History implant (Nexplanon) loratadine 10 mg tablet mg 09/09/25 Unknown History norethindrone 1 mg-ethinyl tablet 09/09/25 Unknown Hi story estradiol 20 mcg (21)-iron 75 mg (7) tablet (Anjelica Fe 10/29 (28)) omeprazole 20 mg capsule,delayed mg 09/09/25 Unknown History release Allergies Allergy/AdvReac Type Severity Reaction Status Date / Time No Known Allergies Allergy Verified 09/09/25 12:06 Review of Systems Review of Systems: CONSTITUTIONAL: Denies malaise, chills, sweats, or fever. EYES: Denies visual changes, redness, or discharge. ENT: Reports no rhinorrhea, congestion, sinus pain, otalgia and +sore throat. CARDIOVASCULAR: Denies chest pain, palpitations, or edema. RESPIRATORY: Reports no cough.? Denies dyspnea. GASTROINTESTINAL: Denies abdominal pain, nausea, vomiting, diarrhea SKIN: Denies rash or itching. MUSCULOSKELETAL: Denies myalgia. NEUROLOGIC: reports headache. All systems reviewed & are unremarkable except as noted in HPI and below PMFSH Past Medical History Medical History Irritability and anger Anxiety Surgical History Surgical History History of placement of ear tubes History of repair of congenital cleft palate X3 Social History Social History Smoking status: Never smoker Second hand tobacco smoke exposure: Yes Alcohol intake: never Substance use: never Living arrangements: with family Gender identity (if verbalized by the patient): Female Comments At time of signature, agree with nursing past medical, surgical, social and family history. There is no relevant family history pertinent to the presenting complaint Exam Narrative: GENERAL: Well-appearing, well-nourished, and in no acute distress. HEAD: Normocephalic EYES: PERRLA, conjunctivae clear ENT: Nares clear, turbinates edematous and erythematous, clear discharge, headache. Mucous membranes moist. TM pearly young with dull light reflex bilaterally; no tragal tenderness. Oropharynx erythematous without lesions. Tonsils not enlarged and without exudate, no drooling, no hoarseness, no trismus, uvula midline.scant post nasal drainage NECK: Supple. No lymphadenopathy CHEST: Clear to auscultation, breath sounds equal. No wheezing, rhonchi, rales, or stridor. No respiratory distress, speaks in full sentences.no cough noted SAO2 99% on room air HEART: Regular rate and rhythm. No murmur heard. SKIN: Warm, dry, no rash. NEURO: Alert and oriented x3. PSYCH: Normal mood and affect Course Course Emergency Course: Patient is aware of diagnosis, understands and agrees to treatment plan.? Anticipatory guidance given.? Patient agrees to follow-up as directed and is aware of reasons to seek care at the emergency department. Portions of this record may have been created with voice recognition software Level of Care: Express Care Visit Vital Signs Vital signs: Vital Signs Temperature 36.7 C 09/09/25 12:08 Pulse Rate 82 09/09/25 12:08 Respiratory Rate 16 09/09/25 12:08 Blood Pressure 137/66 09/09/25 12:08 Pulse Oximetry 99 09/09/25 12:08 Oxygen Delivery Room Air 09/09/25 12:08 Temperature 36.7 C 09/09/25 12:08 Pulse Rate 82 09/09/25 12:08 Respiratory Rate 16 09/09/25 12:08 Blood Pressure 137/66 09/09/25 12:08 Pulse Oximetry 99 09/09/25 12:08 Oxygen Delivery Room Air 09/09/25 12:08 Reviewed MDM - URI/Sore Throat MDM Narrative Medical decision making narrative: Differential diagnosis considered: Frausto virus, strep pharyngitis, allergic rhinitis, upper respiratory tract infection, sinusitis, rhinosinusitis, nasopharyngitis. viral pharyngitis, otitis media, otitis externa, pneumonia, bronchitis, viral cough syndrome, viral syndrome, and influenza.? Exam findings show no acute concerns or changes; patient is non-toxic appearing and is in no distress.? Patient is appropriate for outpatient treatment and follow-up. Differential Diagnosis Differential diagnosis: Likely upper respiratory infection, viral infection, pharyngitis and other (strep pharyngitis) Medical Records Attestation: I reviewed the patient's medical records. Lab Data Attestation: I reviewed the patient's lab results. Lab results narrative: strep screen negative, culture sent Labs: Lab Results 09/09/25 Range/Units 12:06 POC Grp A Strep Screen Negative (Negative) reviewed Critical Care Time Critical Care Time Critical Care Time: No Discharge Plan Discharge Clinical Impression: Pharyngitis Qualifiers: Pharyngitis/tonsillitis etiology: unspecified etiology Qualified Code(s): J02.9 - Acute pharyngitis, unspecified Patient Disposition: Home Condition: Stable Instructions: Antibiotic Form, Pharyngitis (ED) Additional Instructions: Increase fluids especially juices and water [id number]-[id number] cough and cold medicine of your choice for your symptoms Zyrtec Claritin or Halina daily may include Coricidin brand decongestant due to elevation in blood pressure heat to the face 20-30 minutes 4-6 times a day for pain Salt water gargles, throat lozenges or throat sprays as desired Your strep test today was negative. A throat culture will be sent to the laboratory for further testing. IF the test is positive, you will receive a phone call within 48 hours and an appropriate antibiotic will be initiated at that time. Patient Language: Albanian Prescriptions: No Action Nexplanon 68 mg Implant 1 implant SUBDERMAL ONCE norethindrone-e.estradiol-iron [Anjelica Fe 10/29 (28)] 1 mg-20 mcg (21)/75 mg (7) tablet omeprazole 20 mg capsule,delayed release(DR/EC) loratadine 10 mg tablet Follow-up/Referrals: Cooney,Aby Mustafa APN [Primary Care Provider, Unknown] Time of Disposition: 12:34 Quality Warren Coma Scale Eyes: Open Verbal: Oriented and Alert Motor: Follows Commands Ina Coma Total Score: 15
[2025-09-09 12:34] LABS: EDSTREPNEGPOS1 Negative (Negative)
--- OUTSIDE RECORDS SUMMARY | 2025-09-09 13:20 | XMS_ITS | Clinical Summary ---
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 Gender Identity Not on file Sexual Orientation [...] 5:55 PM CDT Height 162.6 cm (5' 4) 07/17/2024 5:55 PM CDT Body Mass Index 22.31 07/17/2024 5:55 PM CDT Plan of Treatment Health Maintenance Due Date Last Done Comments Cervical Cancer Screening 2004 Depression Screening 2004 Hepatitis C Screening 2004 Meningococcal B Vaccine (1 o f 2 - Standard) 2020 Regular Well Visit/Exam 18-64 2022 Influenza Vaccine (#1) 2025 9, 06/16/2016, 12/03/2009, Additional history exists DTaP/Tdap/Td Vaccine (7 - Td or Tdap) 06/16/2026 06/16/2016, 05/22/2009, 10/19/2005, Additional history exists Hepatitis B Screening Completed 02/26/2005 , 2004, 2004, Additional history exists Pneumococcal vaccine <65 Completed 006, 07/19/2005, 2004, Additional history exists Varicella Vaccines Completed 05/25/2010, 07/19/2005 HPV Vaccines Completed 07/26/2017, 06/16/2016 Meningococcal Vaccine Completed 03/03/2022, 016 Insurance [facility] Care Teams Tool Tender Relationship Specialty Start Date End Date Aby Cooney NP [address] [place] [address] PCP - General Nurse Practitioner 03/18/25
--- OUTSIDE RECORDS SUMMARY | 2025-09-09 13:20 | XMS_ITS | Clinical Summary ---
Author Organization [facility] Address [address] [place] [address] Phone Care Team Providers Care Facilities Maintenance Technician Name Role Phone Unavailable Primary Care Provider Unavailabl e Allergies No known active allergies Medications hydrOXYzine [...] T-tubes. Assessment & Plan (12/18/2020 5:40 PM HOME HEALTH REGISTERED NURSE): Pt told to keep headache diary to [...] doing. Assessment & Plan (10/19/2019 2:00 PM HOME HEALTH REGISTERED NURSE): Supportive care recommended with stretching, rest, and [...] abnormal findings 03/06/2019 Overview (01/17/2020): 07/2017- Last [facility] with [facility]. Assessment & Plan (03/03/2022 3:12 PM [...] (03/03/2022 3:12 PM CDT): Cleft number at [facility] given to Mom to schedule as pt needs to follow up there. Assessment & Plan (03/06/2019 9:00 AM CDT): Pt seeing Cleft Palate multidisciplinary team at [facility] as she is s/p cleft palate repair. Dad states next appointment is in March or April, coming up. Resolved Problems Problem Noted Date Diagnosed Date Resolved Date COVID-19 10/20/2021 03/03/2022 Assessment & Plan (10/20/2021 10:23 PM HOME HEALTH REGISTERED NURSE): Supportive care recommended with normal saline nose [...] trying to limit COVID exposure. 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 [...] Meningococcal MCV4O 03/03/2022 Meningococcal Vaccine 06/16/2016 Novel [id number], Preservative-free, Injectable 12/03/2009,09/15/2009 Pneumococcal Vaccine Peds - [...] Comments Blood Pressure 108/68 10/22/2022 7:35 AM HOME HEALTH REGISTERED NURSE Pulse 65 10/22/2022 7:35 AM HOME HEALTH REGISTERED NURSE Temperature 36.6 C (97.9 F) 10/22/2022 7:35 AM HOME HEALTH REGISTERED NURSE Respiratory Rate 20 10/22/2022 7:35 AM HOME HEALTH REGISTERED NURSE Oxygen Saturation 99% 10/22/2022 7:35 AM HOME HEALTH REGISTERED NURSE Inhaled Oxygen Concentration - - Weight 56.7 kg (125 lb) 10/22/2022 7:35 AM HOME HEALTH REGISTERED NURSE Height 149.9 cm (4' 11) 10/22/2022 7:35 AM HOME HEALTH REGISTERED NURSE Body Mass Index 25.25 10/22/2022 7:35 AM HOME HEALTH REGISTERED NURSE Plan of Treatment Health Maintenance Due Date Last Done Comments Hepatitis C Virus (HCV) Screening 2004 Meningococcal B Immunization (1 of 2 - Standard) 2020 Influenza Immunization (#1) 2025 07/02/2019, 0 06/16/2016 SARS-COV-2 Immunization (1 - 2024- season) 2025 DTaP/Tdap/Td Immunization (7 - Td or Tdap) [...] (MMR) Immunization Discontinued 05/25/2010, 10/19/2005 Varicella Immunization Completed 05/25/2010, 2004 Human Papillomavirus (HPV) Immunization Completed 07/26/2017, 06/16/2016 Meningococcal Immunization (ACWY) Completed 03/03/2022, 06/16/2016 Rotavirus Immunization Aged Out No lo nger eligible based on patient's age to complete this topic [place] [address] [place] [address] [place] [address]
--- OUTSIDE RECORDS SUMMARY | 2025-09-09 13:20 | XMS_ITS | Clinical Summary ---
Author Organization [facility] Address [address] [place] [address] Care Team Providers Care Supervisor Sulfuric Acid Plant Name Role Phone Unavailable Primary Care Provider Unavailabl e Source Comments [facility],non-owned Affiliates and Associated Physician Practices is amultiple site organization consisting of ambulatory clinics and hospital sitesin [place], [place], [place] and [place]. This disclosure is being madepursuant to the Care Everywhere program and may not contain all information available regarding this patient. 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 Gender Identity Not on file Sexual Orientation Not on file Plan of Treatment Health Maintenance Due Date Last Done Comments HIV SCREENING 2019 HPV VACCINE (1 - 3-dose series) 2019 CHLAMYDIA/GONORRHEA SCREENING 2020 MENINGOCOCCAL (Group B) VACCINE SHARED DECISION-MAKING (1 of 2 - Standard) 2020 HEPATITIS C SCREENING 07/12/2022 DTAP/TDAP/TD VACCINES (1 - Tdap) 2023 HEPATITIS B VACCINE (1 of 3 - 19+ 3-dose series) 2023 DEPRESSION SCREENING 10/10/2024 COVID-19 VACCINE (1 - 2024-2 6 season) 2025 INFLUENZA VACCINE (#1) 2025 , 06/16/2016 ZOSTER VACCINE (1 of 2) 2054 HIB VACCINE Aged Out No longer eligi ble based on patient's age to complete this topic MENINGOCOCCAL GROUPS A/C/Y/W VACCINE Aged Out No longer eligible b ased on patient's age to complete this topic PNEUMOCOCCAL VACCINE Aged Out No long er eligible based on patient's age to complete this topic Insurance ANTHEM ANTHEM
--- OUTSIDE RECORDS SUMMARY | 2025-09-09 13:21 | XMS_ITS | Continuity of Care Document ---
Author Organization [facility] (Adult Med) Address [address] [place] [address] Care Team Providers Care Supervising Chef Name Role Phone ABY BARRERA Primary Care Provider Assessment No assessment recorded. Plan of Treatment Reminders Order Date Submit Date Provider Last Modified By Organization Details Last Modified Time Details Appointments ANY 15 2024 01:30P M Leonid Vigil MD Not available Not available Not available Lab urinalys is, dipstick 2024 025 In-Office Order, Internal Use Only DO Not Attach Compendium DO Not Attach Compendium, Do Not Delete/merge, [id number] 07/23/2025 16:04:44 culture, urine 2024 [place] [facility], [address], [place], [address], 07/25/2025 07:15:47 Referral None recorded . Procedures None recorded . Surgeries None recorded . Imaging None recorded . Medication Orders Miralax 17 gram/dos e oral powder 2024 025 [facility] [address] [place], [address], 07/23/2025 16:06:57 omeprazo le 20 mg capsule, delayed release 2024 025 [facility] [address] [place], [address], 07/23/2025 16:06:59 Patient TargetsNo targets recorded. Patient Instructions Encounter Date Encounter Id Patient Instructions Last Modified By Organization Details Last Modified Time 07/23/2025 [id number] painful urinatio n (dysuria): care instructions Not available 07/23/2025 16:04:44 A healthy lifestyle: care instructions Not available 07/23/2025 16:08:55 Continue all medications as prescribed. Not available 07/23/2025 16:09:03 follow up as needed Not available 07/23/2025 16:09:25 Reason for Referral None Reported. Results Created Date Observation Date Name Description Value Unit Range Abnormal Flag Note LastModifiedBy Organization Detail LastModifiedTime 07/23/2007/25/2025 URINE CULTU RE, UROLO GY JAISON P urine culture, urology workup FINAL REPORT Not Available [facility] ([facility]) [address] [facility] [address], [place], [address], 07/25/2025 07:15:47 07/23/2007/25/2025 URINE CULTU RE, UROLO GY JAISON P result 1 COMMEN T Mixed uroge nital marco antonio 3,000 Colon ies/m L Not Available [facility] ([facility]) [address] [facility] [address], [place], [address], 07/25/2025 07:15:47 07/23/2007/23/2025 urina lysis , dipst ick Leukocytes Trace Not Available In-Offi ce Order Internal Use Only DO Not Attach Compendium DO Not Attach Compendium, Do Not Delete/merge, 07/23/2025 15:47:36 07/23/2007/23/2025 urina lysis , dipst ick Nitrite negati ve Not Available In-Office Order Internal Use Only DO Not Attach Compendium DO Not Attach Compendium, Do Not Delete/merge, [id number] 07/23/2025 15:47:36 07/23/2007/23/2025 urina lysis , dipst ick Urobilinogen .2 Not Available In-Of fice Order Internal Use Only DO Not Attach Compendium DO Not Attach Compendium, Do Not Delete/merge, 07/23/2025 15:47:36 07/23/2007/23/2025 urina lysis , dipst ick Protein Negati ve Not Available In-Office Order Internal Use Only DO Not Attach Compendium DO Not Attach Compendium, Do Not Delete/merge, 07/23/2025 15:47:36 07/23/2007/23/2025 urina lysis , dipst ick pH 6.5 Not Available In-Office Order Internal Use Only DO Not Attach Compendium DO Not Attach Compendium, Do Not Delete/merge, 07/23/2025 15:47:36 07/23/2007/23/2025 urina lysis , dipst ick Blood Negati ve Not Available In-Office Order Internal Use Only DO Not Attach Compendium DO Not Attach Compendium, Do Not Delete/merge, 07/23/2025 15:47:36 07/23/2007/23/2025 urina lysis , dipst ick Specific [place] 1.015 Not Available In-Off ice Order Internal Use Only DO Not Attach Compendium DO Not Attach Compendium, Do Not Delete/merge, 07/23/2025 15:47:36 07/23/2007/23/2025 urina lysis , dipst ick Ketone Negati ve Not Available In-Office Order Internal Use Only DO Not Attach Compendium DO Not Attach Compendium, Do Not Delete/merge, 07/23/2025 15:47:36 07/23/2007/23/2025 urina lysis , dipst ick Bilirubin Negati ve Not Available In-Office Order Internal Use Only DO Not Attach Compendium DO Not Attach Compendium, Do Not Delete/merge, 07/23/2025 15:47:36 07/23/2007/23/2025 urina lysis , dipst ick Glucose Negati ve Not Available In-Office Order Internal Use Only DO Not Attach Compendium DO Not Attach Compendium, Do Not Delete/merge, 07/23/2025 15:47:36 07/23/2007/23/2025 urina lysis , dipst ick Appearance Clear Not Available In-Offi ce Order Internal Use Only DO Not Attach Compendium DO Not Attach Compendium, Do Not Delete/merge, [id number] 07/23/2025 15:47:36 07/23/2007/23/2025 urina lysis , dipst ick Color Yellow Not Available In-Office Order Internal Use Only DO Not Attach Compendium DO Not Attach Compendium, Do Not Delete/merge, [id number] 07/23/2025 15:47:36 Result Notes None recorded. Problems Name Problem SNOMED Code Status Onset Date Resolution Date Notes Provider Name and Address Organization Details Recorded Time Contraception care management Active 2024 Leonid Vigil MD Attn: [employer] ,[address] [place], [address] , [facility] 20:56:14 Overweight 677965018 Active 2024 Leonid Vigil MD Attn: [employer] ,[address] [place], [address] , [facility] 20:56:16 Problem Notes None recorded. Procedures Surgical History Date Name Laterality Status Provider Name and Address Organization Details Recorded Time repair of cleft palate completed Zhane Koenig MA [facility] 12/18/2024 11:43:00 Imaging Results None recorded. Procedure Notes None recorded. Medical Equipment None Reported. Allergies No known drug allergies Medications Name Sig Start Date Stop Date Status Note LastModified by Organization Details LastModified Time fluconazole 150 mg tablet TAKE ONE TABLET BY MOUTH A ONE-TIME DOSE 12/18 completed Not Available Not Available Not Available prednisone 20 mg tablet TAKE 2 TABLETS BY MOUTH IN THE MORNING WITH FOOD FOR 5 DAYS 07/23 completed Not Available Not Available Not Available amoxicillin 875 mg tablet TAKE 1 TABLET BY MOUTH EVERY 12 HOURS FOR 10 DAYS 12/18 completed Not Available Not Available Not Available benzonatate 100 mg capsule TAKE 1 CAPSULE BY MOUTH EVERY 8 HOURS 12/18 completed Not Available Not Available Not Available cephalexin 500 mg capsule TAKE 1 CAPSULE BY MOUTH THREE TIMES DAILY FOR 7 DAYS 12/18 completed Not Available Not Available Not Available sertraline 25 mg tablet TAKE 1 TABLET BY MOUTH ONCE DAILY 07/23 completed Not Available Not Available Not Available omeprazole 20 mg capsule,del ayed release TAKE 1 CAPSULE BY MOUTH ONCE DAILY active Not Available Not Available No t Available polyethylen e glycol 3350 17 gram/dose oral powder MIX 17 GRAMS IN LIQUID AND DRINK BY MOUTH EVERY DAY NEEDED FOR CONSTIPAT ION active Not Available Not Available No t Available methylpredn isolone 4 mg tablets in a dose pack TAKE BY MOUTH DIRECTED ON INSIDE OF PACKAGE 12/18 completed Not Available Not Available Not Available loratadine 10 mg tablet TAKE 1 TABLET BY MOUTH ONCE DAILY active Not Available Not Available No t Available loratadine 10 mg capsule Take 1 capsule every day by oral route. 07/23 completed Not Available Not Available Not Available Anjelica Fe 10/29 (28) 1 mg-20 mcg (21)/75 mg (7) tablet TAKE 1 TABLET BY MOUTH ONCE DAILY. MUST KEEP UPCOMING APPOINTME NT FOR FURTHER REFILLS. active Not Available Not Available No t Available Vitals Date Recorded Body height Body mass index (BMI) Body weight Respiratory rate Oxygen saturation Heart rate Body temperature Systolic And Diastolic Provider Name and Address Organization Details Last Updated DateTime 149.86 cm 30.3 kg/m2 95158.8 6 g 16 /min 99 % 70 /min 97.5 [degF] 116/80 mm[Hg] CELESTE Castellon [facility] 15:42:33 Social History Question Answer Notes LastModified by Organizat ion Details LastModified Time Tobacco Smoking Status Never Smoker Zhane Koenig MA [facility], [place] - [facility] 12/18/2024 11:42:49 Are You Blind Or Do You Have Difficulty Seeing? No Glasses Information not available 07/23/2025 What Is Your Level Of Caffeine Consumption? Moderate Tea, Soda Information not available 07/23/2025 In The 14 Days Before Symptom Onset, Have You Had Close Contact With A Laboratory-confir med COVID-19 While That Case Was Ill? No Information not available 07/23/2025 In The 14 Days Before Symptom Onset, Have You Had Close Contact With A Person Who Is Under Investigation For COVID-19 While That Person Was Ill? No Information not available 07/23/2025 Have You Been To An Area Known To Be High Risk For COVID-19? No Information not available 07/23/2025 Are You Deaf Or Do You Have Serious Difficulty Hearing? No Information not available 07/23/2025 What Type Of Diet Are You Following? REGULAR Information not available 07/23/2025 Are There Any Guns Present In Your Home? No Information not available 07/23/2025 What Was The Date Of Your Most Recent Tobacco Screening? 07/23/2025 Information not available 07/23/2025 How Many Children Do You Have? 0 Information not available 07/23/2025 What Is Your Relationship Status? Committed Partner(s) Information not available 07/23/2025 Do You Use Your Seat Belt Or Car Seat Routinely? Yes Information not available 07/23/2025 Do You Have Smoke And Carbon Monoxide Detectors In Your Home? Yes Information not available 07/23/2025 Are You Passively Exposed To Smoke? No Information no t available 07/23/2025 Do You Use Sunscreen Routinely? No Information not available 07/23/2025 Has Tobacco Cessation Counseling Been Provided? Yes [email or web address] Information not available 12/18/2024 On What Date Was Tobacco Cessation Counseling Provided? 07/23/2025 Information not available 07/23/2025 Sex: Female Functional Status Question Answer Note LastModified by Organizat ion Details LastModified Time Do you use any illicit or recreational drugs? No Information not available 07/23/2025 Do you or have you ever used any other forms of tobacco or nicotine? No Information not available 07/23/2025 What is your level of alcohol consumption? None Information not available 07/23/2025 Are you currently employed? No Information not available 07/23/2025 Are you able to care for yourself independently? Yes Information not available 07/23/2025 Mental Status Question Answer Note LastModified by Organization D etails LastModified Time Do you feel stressed (tense, restless, nervous, or anxious, or unable to sleep at night)? [id number] Information not available 07/23/2025 Family History Nothing Reported. Medical History Condition Response Coronary Artery Disease N Other N High Blood Pressure N Atrial Fibrillation N Thyroid Problems N Kidney or Bladder Problems N GI Problems N Depression N COPD N Blood Clots N Have you had a mammogram in the last yea r? N Skin Problems N Eating Disorder N Anemia N Heart Attack ([place]) N Anxiety Disorder N Diabetes N Muscle, Joint, or Bone Problems N Arthritis N Seizures/Epilepsy N Have you had a colonoscopy in the last 1 0 years? N Acid Reflux (GERD) N Cancer N Stroke N Asthma N Allergies N Have you had a PSA blood test in the las t year? N ADHD N Substance Abuse N High Cholesterol N Hepatitis N Liver Disease N Schizophrenia N Headaches N Heart Failure N Osteoporosis N Gynecological History Statement/Question Response Flow Moderate Date of LMP 07/05/2025 Menses Monthly Y Duration of Flow (days) 3 Current Control Method BCPs LMP Approximate Obstetrics History GPAL:G 0 P 0 0 0 0 Immunizations Vaccine Type Date Status Note Provider Nam e and Address Organization Details Recorded Time Hep B, adolescent or pediatric 4 completed Not Available [facility] 07/23/2025 15:25:22 pneumococcal conjugate PCV 7 4 completed Not Available [facility] 07/23/2025 15:25:22 DTaP-Hep B-IPV 4 completed Not Available [facility] 07/23/2025 15:25:22 Hib, unspecified formulation 4 completed Not Available [facility] 07/23/2025 15:25:22 Hib, unspecified formulation 5 completed Not Available [facility] 07/23/2025 15:25:22 IPV 5 completed Not Available [facility] 07/23/2025 15:25:22 DTaP 5 completed Not Available [facility] 07/23/2025 15:25:22 pneumococcal conjugate PCV 7 5 completed Not Available [facility] 07/23/2025 15:25:22 DTaP-Hep B-IPV 5 completed Not Available [facility] 07/23/2025 15:25:22 Hib, unspecified formulation 5 completed Not Available [facility] 07/23/2025 15:25:22 varicella 5 completed Not Available [facility] 07/23/2025 15:25:22 pneumococcal conjugate PCV 7 5 completed Not Available [facility] 07/23/2025 15:25:22 DTaP 6 completed Not Available [facility] 07/23/2025 15:25:22 Hib, unspecified formulation 6 completed Not Available [facility] 07/23/2025 15:25:22 MMR 6 completed Not Available [facility] 07/23/2025 15:25:22 pneumococcal conjugate PCV 7 6 completed Not Available [facility] 07/23/2025 15:25:22 Hep A, pediatric, unspecified formulation 6 completed Not Available [facility] 07/23/2025 15:25:22 Hep A, pediatric, unspecified formulation 8 completed Not Available [facility] 07/23/2025 15:25:22 DTaP-IPV 9 completed Not Available [facility] 07/23/2025 15:25:22 Novel [id number], preservative-free 9 completed Not Available [facility] 07/23/2025 15:25:22 influenza, split (incl. purified surface antigen) 9 completed Not Available [facility] 07/23/2025 15:25:22 influenza, split (incl. purified surface antigen) 0 completed Not Available [facility] 07/23/2025 15:25:22 Novel [id number], preservative-free 0 completed [facility] 07/[facility] 15:25:22 MMRV 0 completed [facility] 07/23/2025 15:25:22 meningococcal MCV4P 6 completed Not Available [facility] 07/23/2025 15:25:22 HPV9 6 completed Not Available [facility] 07/23/2025 15:25:22 Influenza, split virus, quadrivalent, PF 6 completed Not Available [facility] 07/23/2025 15:25:22 Tdap 6 completed Not Available [facility] 07/23/2025 15:25:22 HPV9 7 completed Not Available [facility] 07/23/2025 15:25:22 Influenza, split virus, quadrivalent, PF 9 completed Not Available [facility] 07/23/2025 15:25:22 Meningococcal MCV4O 2 completed Not Available [facility] 07/23/2025 15:25:22 Past Encounters Encounter ID Performer Location Encounter Start Date Encounter Closed Date Diagnosis/Indication Diagnosis SNOMED-CT Code Diagnosis ICD10 Code Diagnosis IMO Codes Diagnosis Note [id number] Windy fregoso, MD [facility] (Adult [facility]) [address] [place] [address] 07/23/2025 15:24:04 07/30/2025 11:39:53 Dysuria 03394219 R30.0 [id number] urine dip negative, will send for culture and notify pt if abx needed, dwp to increase fluids and RTO if increase in pain or fever or other changes occur. Gastroesop hageal reflux disease without esophagitis 994559157 K21.9 [id number] dwp diet changeswil l start ppi Chronic constipation 236 848117 K59.09 [id number] prn miralaxdwp diet changes Obese class I 2303046195 24796 E66.811 E66.3 [id number] advised low cholestero l diet, regular exercise and weight reduction. Health Concerns Section Related Observation LastModified by Organization Detai ls LastModified Time None Recorded Concern Status LastModified by Organization Details LastModified Time None Recorded Payers Encounter Date Sequence Insurance Name Policy Number Policy Bhandari Covered Member ID Bhandari Member ID Guarantor Name 07/23/2025 1 [facility] - DOS ON OR AFTER 21 (MEDICAID REPLACEMENT - HMO) Elza February [id number] Notes Date Note Type Note Provider Name and Address Organization Details Recorded Time 07/23/2025 text/html pt states she feels pressure in her stomach. states its been on and off. pt does get constipated and would like miralax. she went 4 days without a bowel movement but states she has been going more recently. states she has another week before her menstrual cycle again.pt states she has acid reflex and would like medicationpt would like a urine dip to check for UTI. denies sx but states she gets chronic uti Aby Barrera APN, [employer]-C Attn: [employer],[address] [facility], [place], [address], [facility] 07/23/2025 16:12:31 OBGyn Episode No OBEpisode recorded.
--- OUTSIDE RECORDS SUMMARY | 2025-09-09 13:22 | XMS_ITS | Data Portability ---
[facility] Address [address] [place] [address] Care Team Providers Care Senior Policy Analyst Name Role Phone HOLLY, ABY Primary Care Provider Assessment Encounter Date Assessment Date Assessment LastModified by Organization Details LastModified Time 12/18/2024 12/18/2024 RTC in 6 months with Ms Padmini [email or web address] Not available 12/18/2024 12:37:49 Plan of Treatment Reminders Order Date Submit Date Provider Last Modified By Organization Details Last Modified Time Details Appointments ANY 15 2024 01:30P Renetta Vigil MD Not available Not available Not available Lab urina lysis , dipst ick 2024 025 In-Office Order, Internal Use Only DO Not Attach Compendium DO Not Attach Compendium, Do Not Delete/merge, [id number] 07/23/2025 16:04:44 cultu re, urine 2024 025 [facility], [address], [place], [address], 07/25/2025 07:15:47 TSH, ultra -sens itive , serum 2024 025 [facility], [address], [place], [address], 03/12/2025 08:25:05 CMP, serum or plasm a 2024 025 [facility], [address], [place], [address], 03/12/2025 03:07:54 lipid panel , serum 2024 025 [facility], [address], [place], [address], 03/12/2025 03:07:53 CBC 2024 025 [facility], [address], [place], [address], 03/12/2025 03:07:56 vagin al patho gens panel , ZAN+p robe, vagin al fluid 2024 025 [facility], [address], [place], [address], 12/20/2024 08:30:31 urina lysis compl ete, refle x cultu re 2024 025 [facility], [address], [place], [address], 12/20/2024 06:20:35 CBC w/ auto diff 2024 025 [facility], [address], [place], [address], 12/19/2024 06:18:45 CMP, serum or plasm a 2024 025 [facility], [address], [place], [address], 12/19/2024 06:18:44 HbA1c (hemo globi n A1c), blood 2024 025 [facility], [address], [place], [address], 12/20/2024 06:20:36 lipid panel , serum 2024 025 [facility], [address], [place], [address], 12/19/2024 06:18:43 HIV 1 + 2, meani ngful use set 2024 [facility], [address] [place] [address], [address], [place], [address], 12/20/2024 06:20:40 RPR (rapi d plasm a reagi n), serum 2024 025 [facility], [address] [place] [address], [address], [place], [address], 12/20/2024 06:20:39 HBsAg (hepa titis B surfa ce Ag), EIA, serum 2024 025 [facility], [address] [place] [address], [address], [place], [address], 12/20/2024 06:20:37 Hepat itis C IgG Ab, qual, serum 2024 [facility], [address] [place] [address], [address], [place], [address], 12/20/2024 06:20:32 chlam ydia trach omati s + neiss eria gonor rhoea e + trich omona s vagin katherine rRNA panel , ZAN+p robe 2024 025 [facility], [address] [place] [address], [address], [place], [address], 12/20/2024 06:20:33 SARS CoV 2 RNA (COVI D-19) , QL, 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-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, respi rator y speci men - pt had a runny nose and conge stion , loss of taste , needs neg test to retur n back to [facility] on 02/02 021 [email or web address] [facility] (Lab), [address], [place], [address], 01/30/2021 15:30:55 SARS CoV 2 RNA (COVI D-19) , QL, 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-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 Surgeries None recor ded. Imaging None recor ded. Medication Orders Karen ax 17 gram/ dose oral powde r 2024 025 [facility], [address] [place] [address], [address], 07/23/2025 16:06:57 omepr azole 20 mg capsu le,de layed relea se 2024 025 [facility], [address] [place] [address], [address], 07/23/2025 16:06:59 Loest rin Fe 10/29 (28-D ay) 1 mg-20 mcg (21)/ 75 mg (7) table t 2024 025 [facility], [address] [place] [address], [address], 12/18/2024 12:23:05 Patient TargetsNo targets recorded. Patient Instructions Encounter Date Encounter Id Patient Instructions Last Modified By Organization Details Last Modified Time 07/25/2020 [id number] Reviewed the following recommendations: -Stay home and [...] days. [email or web address] Not available 07/25/2020 13:52:56 01/30/2021 [id number] Reviewed the following recommendations: -Stay home and [...] symptoms started. [email or web address] Not available 01/30/2021 15:30:50 12/18/2024 [id number] painful urination (dysuria): care instructions Not available 12/18/2024 12:22:39 A healthy lifestyle: care instructions Not available 12/18/2024 12:22:39 03/11/2025 [id number] A healthy lifestyle: care instructions Not available 03/11/2025 14:29:36 Increase intake of fresh fruits, and vegetables. Avoid packaged foods and fast foods. Follow a low salt diet, drink at least 8-10 8oz glasses of water a day, exercise most days of the week. Take all medications as prescribed. Keep appointments with PCP and all specialists. Not available 03/11/2025 14:17:31 follow up as needed, yearly to keep established with provider Not available 03/11/2025 14:17:34 07/23/2025 [id number] painful urination (dysuria): care instructions Not available 07/23/2025 16:04:44 A healthy lifestyle: care instructions Not available 07/23/2025 16:08:55 Continue all medications as prescribed. 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 Dysfunction of bilateral eustachian tubes Referring Physician: Aby Cooney, Family Medicine, Encounter Date: 03/11/2025 Results Created Date Observation Date Name Description Value Unit Range Abnormal Flag Note LastModifiedBy Organization Detail LastModifiedTime 07/25/2007/25/2020 SARS CoV 2 RNA (COVI D-19) , QL, 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-P CR, respi rator y speci men sars - cov - 2 PCR NEGATI VE mL Not Available [facility] (Lab) [address] [place], [address], 07/26/2020 19:02:21 07/25/2007/25/2020 SARS CoV 2 RNA (COVI D-19) , QL, 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-P CR, respi rator y speci men covidcom1 [...] of this test metho d. Not Available [facility] [address] [facility] [address] [facility], [place], [address], 07/26/2020 19:02:21 07/25/2007/25/2020 SARS CoV 2 RNA (COVI D-19) , QL, 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-P CR, respi rator y speci men covidcom2 Posit ousmane resul ts are indic ative of the prese nce of SARS- CoV-2 RNA and do not rule out bacte rial infec tion or co-in fecti on with other virus es. Not Available [facility] (Lab) [address] [place], [address], 07/26/2020 19:02:21 07/25/20 20 07/25/2020 SARS CoV 2 RNA (COVI D-19) , QL, 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-P CR, respi rator y speci men covidcom3 Test resul ts allegra d be used along with other clini esmer obser vatio ns, patie nt histo ry, epide miolo gical infor matio n and labor atory data in makin g the diagn osis. Not Available [facility] (Lab) [address], [place], [address], 07/26/2020 19:02:21 07/25/20 20 07/25/2020 SARS CoV 2 RNA (COVI D-19) , QL, 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-P CR, respi rator y speci men covidcom4 This test has recei teerll FDA Emerg ency Use Autho rizat ion and has been verif ied by [facility] . This test is only [...] or revok ed soone r. Not Available [facility] (Lab) [address], [place], [address], 07/26/2020 19:02:21 07/25/20 20 07/25/2020 SARS CoV 2 RNA (COVI D-19) , QL, 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-P CR, respi rator y speci men covidcom5 [facility] is certi fied under CLIA- 88 as quali fied to perfo rm high compl exity testi ng. This testi ng was [facility] [place] [address] (CLIA Licen se #[id number] [id number] 5, CAP #[id number], AU-ID #[id number]). Not Available [facility] (Lab) [address] [place], [address], 07/26/2020 19:02:21 07/25/20 20 07/25/2020 SARS CoV 2 RNA (COVI D-19) , QL, 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-P CR, respi rator y speci men covidcom6 Facts heet for healt hcare provi ders: https ://[employer] .gov/ media /1362 56/do wnloa d Facts heet for patie nts: https ://[employer] .gov/ media /1362 57/do wnloa d Not Available [facility] (Lab) [address], [place], [address], 07/26/2020 19:02:21 03/03/20 22 03/04/2022 Aspar banegas amino trans feras e [Enzy matic activ ity/v olume ] in Serum or Plasm a aspartate aminotransfe rase [enzymatic activity/vol ume] in serum or plasma 16 U/L high: 32U/L Not Available Not Available 03/11/2025 14:26:06 03/03/20 22 03/04/2022 Aspar banegas amino trans feras e [Enzy matic activ ity/v olume ] in Serum or Plasm a interpretati on and review of laboratory results Normal Not Available Not Available 11/2024 14:26:06 03/03/20 22 03/04/2022 Howard ne amino trans feras e [Enzy matic activ ity/v olume ] in Serum or Plasm a alanine aminotransfe rase [enzymatic activity/vol ume] in serum or plasma 11 U/L high: 41U/L Not Available Not Available 03/11/2025 14:26:06 03/03/20 22 03/04/2022 Howard ne amino trans feras e [Enzy matic activ ity/v olume ] in Serum or Plasm a interpretati on and review of laboratory results Normal Not Available Not Available 11/2024 14:26:06 03/03/20 22 03/04/2022 Lipid 1995 panel - Serum or Plasm a cholesterol [mass/volume ] in serum or plasma 205 mg/dL high: 200mg/ dL high Not Available Not Available 03/11/2025 14:26:06 03/03/20 22 03/04/2022 Lipid 1995 panel - Serum or Plasm a triglyceride [mass/volume ] in serum or plasma 129 mg/dL high: 150mg/ dL Not Available Not Available 03/11/2025 14:26:06 03/03/20 22 03/04/2022 Lipid 1995 panel - Serum or Plasm a cholesterol in HDL [mass/volume ] in serum or plasma 39.9 mg/dL low: 40mg/d L low Not Available Not Available 03/11/2025 14:26:06 03/03/20 22 03/04/2022 Lipid 1995 panel - Serum or Plasm a cholesterol in LDL [mass/volume ] in serum or plasma 139 mg/dL low: 5mg/dL high: 130mg/ dL high Not Available Not Available 03/11/2025 14:26:06 03/03/20 22 03/04/2022 Lipid 1996 panel - Serum or Plasm a cholesterol in VLDL [mass/volume ] in serum or plasma 26 mg/dL low: 5mg/dL high: 55mg/d L Not Available Not Available 03/11/2025 14:26:06 03/03/20 22 03/04/2022 Lipid 1995 panel - Serum or Plasm a cholesterol. total/choles terol in HDL [mass ratio] in serum or plasma 5.1 low: 0high: 4.4 high Not Available Not Available 03/11/2025 14:26:06 03/03/20 22 03/04/2022 Lipid 1995 panel - Serum or Plasm a cholesterol non HDL [mass/volume ] in serum or plasma 165.1 mg/dL high: 130mg/ dL high Not Available Not Available 03/11/2025 14:26:06 03/03/20 22 03/04/2022 Lipid 1996 panel - Serum or Plasm a IS the patient required to BE fasting? Yes 8 Not Available Not Available 03/11/2025 14:26:06 03/03/20 22 03/04/2022 Lipid 1996 panel - Serum or Plasm a has the patient been fasting? Yes Not Available Not Available 11/2024 14:26:06 03/03/20 22 03/04/2022 Lipid 1996 panel - Serum or Plasm a interpretati on and review of laboratory results Abnorm al Not Available Not Available 14:26:06 12/19/19 25 12/18/2024 LIPID PANEL cholesterol, total 179 mg/dL 100-19 9 Not Available [facility] Department [address] [place] [address], [address], 12/19/2024 06:18:43 12/19/19 25 12/18/2024 LIPID PANEL triglyceride s 88 mg/dL 0-149 Not Available [facility] Department [address] [place] [address], [address], 12/19/2024 06:18:43 12/19/19 25 12/18/2024 LIPID PANEL HDL cholesterol 38 mg/dL 40-999 below low normal Not Available [facility] Department [address] [place] [address], [address], 12/19/2024 06:18:43 12/19/19 25 12/18/2024 LIPID PANEL VLDL cholesterol esmer 18 mg/dL 5-40 Not Available [facility] Department [address] [place], [address], 12/19/2024 06:18:43 12/19/19 25 12/18/2024 LIPID PANEL LDL chol calc ([facility]) 135 mg/dL 0-99 above high normal Not Available [facility] Department [address] [place] [address], [address], 12/19/2024 06:18:43 12/19/19 25 12/18/2024 COMP. METAB OLIC PANEL (14) glucose 87 mg/dL 70-99 Not Available [facility] Department [address] [place] [address], [address], 12/19/2024 06:18:44 12/19/19 25 12/18/2024 COMP. METAB OLIC PANEL (14) BUN 14 mg/dL 6-20 Not Available [facility] Department [address] [place] [address], [address], 12/19/2024 06:18:44 12/19/19 25 12/18/2024 COMP. METAB OLIC PANEL (14) creatinine 0.54 mg/dL 0.76-1 .27 below low normal Not Available [facility] Department [address] [place] [address], [address], 12/19/2024 06:18:44 12/19/19 25 12/18/2024 COMP. METAB OLIC PANEL (14) eGFR 135 >=60 Units for eGFR value s are mL/mi n/1.7 3 The eGFR Calcu latio n has not been valid ated for patie nts under the age of 18. If test resul ts are displ ayed for a patie nt under the age of 18, disre ana that value . Not Available [facility] Department [address] [place] [address], [address], 12/19/2024 06:18:44 12/19/19 25 12/18/2024 COMP. METAB OLIC PANEL (14) BUN/creatini ne ratio 27 9-23 above high normal Not Available [facility] Department [address] [place] [address], [address], 12/19/2024 06:18:44 12/19/19 25 12/18/2024 COMP. METAB OLIC PANEL (14) sodium 141 mmol/ L 134-14 4 Not Available [facility] Department [address] [place] [address], [address], 12/19/2024 06:18:44 12/19/19 25 12/18/2024 COMP. METAB OLIC PANEL (14) potassium 4.0 mmol/ L 3.5-5. 2 Not Available [facility] Department [address] [place], [address], 12/19/2024 06:18:44 12/19/19 25 12/18/2024 COMP. METAB OLIC PANEL (14) chloride 105 mmol/ L 96-106 Not Available [facility] Department [address] [place], [address], 12/19/2024 06:18:44 12/19/19 25 12/18/2024 COMP. METAB OLIC PANEL (14) carbon dioxide, total 24 mmol/ L 20-29 Not Available [facility] Department [address] [place], [address], 12/19/2024 06:18:44 12/19/19 25 12/18/2024 COMP. METAB OLIC PANEL (14) calcium 9.4 mg/dL 8.7-10 .2 Not Available [facility] Department [address] [place], [address], 12/19/2024 06:18:44 12/19/19 25 12/18/2024 COMP. METAB OLIC PANEL (14) protein, total 6.7 g/dL 6.0-8. 5 Not Available [facility] Department [address] [place], [address], 12/19/2024 06:18:44 12/19/19 25 12/18/2024 COMP. METAB OLIC PANEL (14) albumin 4.6 g/dL 4.0-5. 0 Not Available [facility] Department [address] [place], [address], 12/19/2024 06:18:44 12/19/19 25 12/18/2024 COMP. METAB OLIC PANEL (14) globulin, total 2.1 g/dL 1.5-4. 5 Not Available [facility] Department [address] [place], [address], 12/19/2024 06:18:44 12/19/19 25 12/18/2024 COMP. METAB OLIC PANEL (14) A/G ratio 2.0 1.2-2. 2 Not Available [facility] Department [address] [place] [address], [address], 12/19/2024 06:18:44 12/19/19 25 12/18/2024 COMP. METAB OLIC PANEL (14) bilirubin, total 0.4 mg/dL 0.0-1. 2 Not Available [facility] Department [address] [place] [address], [address], 12/19/2024 06:18:44 12/19/19 25 12/18/2024 COMP. METAB OLIC PANEL (14) alkaline phosphatase 59 IU/L 44-121 Not Available [facility] Department [address] [place] [address], [address], 12/19/2024 06:18:44 12/19/19 25 12/18/2024 COMP. METAB OLIC PANEL (14) AST (SGOT) 18 U/L 0-40 Not Available [facility] Department [address] [place] [address], [address], 12/19/2024 06:18:44 12/19/19 25 12/18/2024 COMP. METAB OLIC PANEL (14) ALT (SGPT) 13 IU/L 0-32 Not Available [facility] Department [address] [place] [address], [address], 12/19/2024 06:18:44 12/19/19 25 12/18/2024 CBC WITH DIFFE RENTI AL/PL ATELE T WBC 6.3 x10e3 /uL 3.4-10 .8 Not Available [facility] Department [address] [place] [address], [address], 12/19/2024 06:18:45 12/19/19 25 12/18/2024 CBC WITH DIFFE RENTI AL/PL ATELE T RBC 4.72 x10e6 /uL 3.77-5 .28 Not Available [facility] Department [address] [place], [address], 12/19/2024 06:18:45 12/19/1912/18/2024 CBC WITH DIFFE RENTI AL/PL ATELE T hemoglobin 13.4 g/dL 11.1-1 5.9 Not Available [facility] Department [address] [place], [address], 12/19/2024 06:18:45 12/19/1912/18/2024 CBC WITH DIFFE RENTI AL/PL ATELE T hematocrit 41.1 % 34.0-4 6.6 Not Available [facility] Department [address] [place], [address], 12/19/2024 06:18:45 12/19/1912/18/2024 CBC WITH DIFFE RENTI AL/PL ATELE T MCV 87 fL 79-97 Not Available [facility] Department [address] [place], [address], 12/19/2024 06:18:45 12/19/1912/18/2024 CBC WITH DIFFE RENTI AL/PL ATELE T MCH 28.4 pg 26.6-3 3.0 Not Available [facility] Department [address] [place], [address], 12/19/2024 06:18:45 12/19/1912/18/2024 CBC WITH DIFFE RENTI AL/PL ATELE T MCHC 32.6 g/dL 31.5-3 5.7 Not Available [facility] Department [address] [place], [address], 12/19/2024 06:18:45 12/19/1912/18/2024 CBC WITH DIFFE RENTI AL/PL ATELE T RDW 12.6 % 11.5-1 4.5 Not Available [facility] Department [address] [place], [address], 12/19/2024 06:18:45 12/19/19 25 12/18/2024 CBC WITH DIFFE RENTI AL/PL ATELE T platelets 240 x10e3 /uL 150-45 0 Not Available [facility] Department [address] [place], [address], 12/19/2024 06:18:45 12/19/19 25 12/18/2024 CBC WITH DIFFE RENTI AL/PL ATELE T neutrophils 68 % notest b. Not Available [facility] Department [address] [place], [address], 12/19/2024 06:18:45 12/19/19 25 12/18/2024 CBC WITH DIFFE RENTI AL/PL ATELE T lymphs 26 % notest b. Not Available [facility] Department [address] [place], [address], 12/19/2024 06:18:45 12/19/19 25 12/18/2024 CBC WITH DIFFE RENTI AL/PL ATELE T monocytes 5 % notest b. Not Available [facility] Department [address] [place], [address], 12/19/2024 06:18:45 12/19/19 25 12/18/2024 CBC WITH DIFFE RENTI AL/PL ATELE T eos 1 % notest b. Not Available [facility] Department [address] [place], [address], 12/19/2024 06:18:45 12/19/19 25 12/18/2024 CBC WITH DIFFE RENTI AL/PL ATELE T basos 1 % notest b. Not Available [facility] Department [address] [place], [address], 12/19/2024 06:18:45 12/19/19 25 12/18/2024 CBC WITH DIFFE RENTI AL/PL ATELE T neutrophils (absolute) 4.3 x10e3 /uL 1.4-7. 0 Not Available [facility] Department [address] [place], [address], 12/19/2024 06:18:45 12/19/19 25 12/18/2024 CBC WITH DIFFE RENTI AL/PL ATELE T lymphs (absolute) 1.6 x10e3 /uL 0.7-3. 1 Not Available [facility] Department [address] [place], [address], 12/19/2024 06:18:45 12/19/19 25 12/18/2024 CBC WITH DIFFE RENTI AL/PL ATELE T monocytes(ab solute) 0.3 x10e3 /uL 0.1-0. 9 Not Available [facility] Department [address] [place], [address], 12/19/2024 06:18:45 12/19/19 25 12/18/2024 CBC WITH DIFFE RENTI AL/PL ATELE T eos (absolute) 0.1 x10e3 /uL 0.0-0. 4 Not Available [facility] Department [address] [place], [address], 12/19/2024 06:18:45 12/19/19 25 12/18/2024 CBC WITH DIFFE RENTI AL/PL ATELE T baso (absolute) 0.0 x10e3 /uL 0.0-0. 2 Not Available [facility] Department [address] [place], [address], 12/19/2024 06:18:45 12/19/19 25 12/18/2024 CBC WITH DIFFE RENTI AL/PL ATELE T immature granulocytes 0.2 % notest b. Not Available [facility] Department [address] [place], [address], 12/19/2024 06:18:45 12/19/19 25 12/18/2024 CBC WITH DIFFE RENTI AL/PL ATELE T immature grans (abs) 0.0 x10e3 /uL 0.0-0. 1 Not Available [facility] Department [address] [place], [address], 12/19/2024 06:18:45 12/19/19 25 12/18/2024 CBC WITH DIFFE RENTI AL/PL ATELE T NRBC 0 % 0-0 Not Available [facility] Department [address], [place], [address], 12/19/2024 06:18:45 12/19/19 25 12/19/2024 INTER PRETA TION: interpretati on: Commen t Not infec niharika with HCV unles s early or acute infec tion is suspe cted (whic h may be delay ed in an immun ocomp romis ed indiv idual ), or other evide nce exist s to indic ate HCV infec tion. Not Available [facility] ([facility]) [address] [place], [address], 12/20/2024 06:20:32 12/19/19 25 12/19/2024 HCV ANTIB DAIN RFX TO QUANT PCR HCV Ab NON REACTI VE nonrea ctive Not Available [facility] ([facility]) [address] [place], [address], 12/20/2024 06:20:32 12/19/19 25 12/20/2024 CT, NG, TRICH VAG BY ZAN chlamydia by ZAN NEGATI VE negati ve Not Available [facility] ([facility]) [address] [place], [address], 12/20/2024 06:20:33 12/19/19 25 12/20/2024 CT, NG, TRICH VAG BY ZAN gonococcus by ZAN NEGATI VE negati ve Not Available [facility] ([facility]) [address] [place], [address], 12/20/2024 06:20:33 12/19/19 25 12/20/2024 CT, NG, TRICH VAG BY ZAN trich vag by ZAN NEGATI VE negati ve Not Available [facility] ([facility]) [address] [facility], [place], [address], 12/20/2024 06:20:33 12/19/19 25 12/19/2024 MICRO SCOPI C EXAMI NATIO N WBC None seen /hpf 0-5 Not Available [facility] ([facility]) [address] [facility], [place], [address], 12/20/2024 06:20:34 12/19/19 25 12/19/2024 MICRO SCOPI C EXAMI NATIO N RBC 0-2 /hpf 0-2 Not Available [facility] ([facility]) [address] [facility], [place], [address], 12/20/2024 06:20:34 12/19/19 25 12/19/2024 MICRO SCOPI C EXAMI NATIO N epithelial cells (non renal) >10 /hpf 0-10 abnormal Not Available [facility] ([facility]) [address] [facility], [place], [address], 12/20/2024 06:20:34 12/19/19 25 12/19/2024 MICRO SCOPI C EXAMI NATIO N casts None seen /lpf nonese en Not Available [facility] ([facility]) [address] [place], [address], 12/20/2024 06:20:34 12/19/19 25 12/19/2024 MICRO SCOPI C EXAMI NATIO N bacteria Modera te nonese en/few abnormal Not Available [facility] ([facility]) [address] [place], [address], 12/20/2024 06:20:34 12/19/19 25 12/19/2024 UA/M W/RFL X CULTU RE, ROUTI NE specific gravity 1.024 1.005- 1.030 Not Available [facility] ([facility]) [address] [facility] [place], [address], 12/20/2024 06:20:35 12/19/19 25 12/19/2024 UA/M W/RFL X CULTU RE, ROUTI NE pH 7.0 5.0-7. 5 Not Available [facility] ([facility]) [address] [facility], [place], [address], 12/20/2024 06:20:35 12/19/19 25 12/19/2024 UA/M W/RFL X CULTU RE, ROUTI NE urine-color YELLOW yellow Not Available [facility] ([facility]) [address] [facility], [place], [address], 12/20/2024 06:20:35 12/19/19 25 12/19/2024 UA/M W/RFL X CULTU RE, ROUTI NE appearance CLEAR clear Not Available [facility] ([facility]) [address] [facility], [place], [address], 12/20/2024 06:20:35 12/19/19 25 12/19/2024 UA/M W/RFL X CULTU RE, ROUTI NE WBC esterase NEGATI VE negati ve Not Available [facility] ([facility]) [address] [facility], [place], [address], 12/20/2024 06:20:35 12/19/19 25 12/19/2024 UA/M W/RFL X CULTU RE, ROUTI NE protein NEGATI VE negati ve/tra ce Not Available [facility] ([facility]) [address] [facility], [place], [address], 12/20/2024 06:20:35 12/19/19 25 12/19/2024 UA/M W/RFL X CULTU RE, ROUTI NE glucose NEGATI VE negati ve Not Available [facility] ([facility]) [address] [place], [address], 12/20/2024 06:20:35 12/19/19 25 12/19/2024 UA/M W/RFL X CULTU RE, ROUTI NE ketones NEGATI VE negati ve Not Available [facility] ([facility]) [address] [facility], [place], [address], 12/20/2024 06:20:35 12/19/19 25 12/19/2024 UA/M W/RFL X CULTU RE, ROUTI NE occult blood NEGATI VE negati ve Not Available [facility] ([facility]) [address] [facility], [place], [address], 12/20/2024 06:20:35 12/19/19 25 12/19/2024 UA/M W/RFL X CULTU RE, ROUTI NE bilirubin NEGATI VE negati ve Not Available [facility] ([facility]) [address] [place], [address], 12/20/2024 06:20:35 12/19/19 25 12/19/2024 UA/M W/RFL X CULTU RE, ROUTI NE urobilinogen ,semi-qn 1.0 mg/dL 0.2-1. 0 Not Available [facility] ([facility]) [address] [facility], [place], [address], 12/20/2024 06:20:35 12/19/19 25 12/19/2024 UA/M W/RFL X CULTU RE, ROUTI NE nitrite, urine NEGATI VE negati ve Not Available [facility] ([facility]) [address] [place], [address], 12/20/2024 06:20:35 12/19/19 25 12/19/2024 UA/M W/RFL X CULTU RE, ROUTI NE microscopic examination COMMEN T Micro scopi c follo ws if indic ated. Not Available [facility] ([facility]) [address] [place], [address], 12/20/2024 06:20:35 12/19/19 25 12/19/2024 UA/M W/RFL X CULTU RE, ROUTI NE microscopic examination SEE BELOW: Micro scopi c was indic ated and was perfo rmed. Not Available [facility] ([facility]) [address] [facility], [place], [address], 12/20/2024 06:20:35 12/19/19 25 12/19/2024 UA/M W/RFL X CULTU RE, ROUTI NE urinalysis reflex COMMEN T This speci men has refle xed to a Urine Cultu re. Not Available [facility] ([facility]) [address] [facility], [place], [address], 12/20/2024 06:20:35 12/19/19 25 12/19/2024 HEMOG LOBIN A1C hemoglobin A1C 5.3 % 4.8-5. 6 Predi abete s: 5.7 - 6.4 Diabe mikey: >6.4 Glyce bobo contr ol for adult s with diabe mikey: <7.0 Not Available [facility] ([facility]) [address] [facility], [place], [address], 12/20/2024 06:20:36 12/19/19 25 12/19/2024 HBSAG SCREE N HBsAg screen NEGATI VE negati ve Not Available [facility] ([facility]) [address] [facility], [place], [address], 12/20/2024 06:20:37 12/19/19 25 12/20/2024 URINE CULTU RE, ROUTI NE urine culture, routine Final report Not Available [facility] ([facility]) [address] [place], [address], 12/20/2024 06:20:38 12/19/19 25 12/20/2024 URINE CULTU RE, ROUTI NE result 1 No growth Not Available [facility] ([facility]) [address] [facility] [place], [address], 12/20/2024 06:20:38 12/19/19 25 12/19/2024 RPR, RFX QN RPR/C ONFIR M TP RPR NON REACTI VE nonrea ctive Not Available [facility] ([facility]) [address] [place], [address], 12/20/2024 06:20:39 12/19/19 25 12/19/2024 HIV AB/P2 4 AG WITH REFLE X HIV Ab/P24 Ag screen NON REACTI VE nonrea ctive HIV-1 /HIV- 2 antib odies and HIV-1 p24 antig en were NOT detec niharika. There is no labor atory evide nce of HIV infec tion. HIV Negat ousmane Not Available [facility] ([facility]) [address] [facility], [place], [address], 12/20/2024 06:20:40 12/19/19 25 12/20/2024 NUSWA B VAGIN ITIS PLUS (VG+) atopobium vaginae MODERA TE - 1 score Not Available [facility] ([facility]) [address] [place], [address], 12/20/2024 08:30:31 12/19/19 25 12/20/2024 NUSWA B VAGIN ITIS PLUS (VG+) bvab 2 LOW - 0 score Not Available [facility] ([facility]) [address] [place], [address], 12/20/2024 08:30:31 12/19/19 25 12/20/2024 NUSWA B VAGIN ITIS PLUS (VG+) megasphaera 1 LOW - 0 score Calcu late total score by gema luis the 3 indiv idual bacte rial vagin osis (BV) marke r score s toget her. Total score is inter prete d as follo ws: Total score 0-1: Indic ates the absen ce of BV. Total score 2: Indet ermin ate for BV. Addit ional clini esmer data allegra hilton be evalu ated to estab luzma crandall. Total score 3-6: Indic ates the prese nce of BV. Not Available [facility] ([facility]) [address] [facility], [place], [address], 12/20/2024 08:30:31 12/19/19 25 12/20/2024 NUSWA B VAGIN ITIS PLUS (VG+) halie albicans, ZAN NEGATI VE negati ve Not Available [facility] ([facility]) [address] [place], [address], 12/20/2024 08:30:31 12/19/19 25 12/20/2024 NUSWA B VAGIN ITIS PLUS (VG+) halie glabrata, ZAN NEGATI VE negati ve Not Available [facility] ([facility]) [address] [place], [address], 12/20/2024 08:30:31 12/19/19 25 12/20/2024 NUA B VAGIN ITIS PLUS (VG+) trich vag by ZAN NEGATI VE negati ve Not Available [facility] ([facility]) [address] [place], [address], 12/20/2024 08:30:31 12/19/19 25 12/20/2024 NUSWA B VAGIN ITIS PLUS (VG+) chlamydia trachomatis, ZAN NEGATI VE negati ve Not Available [facility] ([facility]) [address] [place], [address], 12/20/2024 08:30:31 12/19/19 25 12/20/2024 NUSWA B VAGIN ITIS PLUS (VG+) neisseria gonorrhoeae, ZAN NEGATI VE negati ve Not Available [facility] ([facility]) [address] [place], [address], 12/20/2024 08:30:31 03/11/20 25 03/12/2025 LIPID PANEL cholesterol, total 214 mg/dL 100-19 9 above high normal Not Available [facility] Department [address] [place] [address], [address], 03/12/2025 03:07:53 03/11/20 25 03/12/2025 LIPID PANEL triglyceride s 166 mg/dL 0-149 above high normal Not Available [facility] Department [address] [place] [address], [address], 03/12/2025 03:07:53 03/11/20 25 03/12/2025 LIPID PANEL HDL cholesterol 45 mg/dL 40-999 Not Available [facility] Department [address] [place] [address], [address], 03/12/2025 03:07:53 03/11/20 25 03/12/2025 LIPID PANEL VLDL cholesterol esmer 33 mg/dL 5-40 Not Available [facility] Department [address] [place] [address], [address], 03/12/2025 03:07:53 03/11/20 25 03/12/2025 LIPID PANEL LDL chol calc (nih) 158 mg/dL 0-99 above high normal Not Available [facility] Department [address] [place] [address], [address], 03/12/2025 03:07:53 03/11/20 25 03/12/2025 COMP. METAB OLIC PANEL (14) glucose 89 mg/dL 70-99 Not Available [facility] Department [address] [place], [address], 03/12/2025 03:07:54 03/11/20 25 03/12/2025 COMP. METAB OLIC PANEL (14) BUN 14 mg/dL 6-20 Not Available [facility] Department [address] [place] [address], [address], 03/12/2025 03:07:54 03/11/20 25 03/12/2025 COMP. METAB OLIC PANEL (14) creatinine 0.56 mg/dL 0.76-1 .27 below low normal Not Available [facility] Department [address] [place] [address], [address], 03/12/2025 03:07:54 03/11/20 25 03/12/2025 COMP. METAB OLIC PANEL (14) eGFR 134 >=60 Units for eGFR value s are mL/mi n/1.7 3 The eGFR Calcu latio n has not been valid ated for patie nts under the age of 18. If test resul ts are displ ayed for a patie nt under the age of 18, disre ana that value . Not Available [facility] Department [address] [place] [address], [address], 03/12/2025 03:07:54 03/11/20 25 03/12/2025 COMP. METAB OLIC PANEL (14) BUN/creatini ne ratio 25 9-23 above high normal Not Available [facility] Department [address] [place] [address], [address], 03/12/2025 03:07:54 03/11/20 25 03/12/2025 COMP. METAB OLIC PANEL (14) sodium 140 mmol/ L 134-14 4 Not Available [facility] Department [address] [place] [address], [address], 03/12/2025 03:07:54 03/11/20 25 03/12/2025 COMP. METAB OLIC PANEL (14) potassium 4.2 mmol/ L 3.5-5. 2 Not Available [facility] Department [address] [place], [address], 03/12/2025 03:07:54 03/11/20 25 03/12/2025 COMP. METAB OLIC PANEL (14) chloride 103 mmol/ L 96-106 Not Available [facility] Department [address] [place] [address], [address], 03/12/2025 03:07:54 03/11/20 25 03/12/2025 COMP. METAB OLIC PANEL (14) carbon dioxide, total 25 mmol/ L 20-29 Not Available [facility] Department [address] [place], [address], 03/12/2025 03:07:54 03/11/20 25 03/12/2025 COMP. METAB OLIC PANEL (14) calcium 9.8 mg/dL 8.7-10 .2 Not Available [facility] Department [address] [place], [address], 03/12/2025 03:07:54 03/11/20 25 03/12/2025 COMP. METAB OLIC PANEL (14) protein, total 7.0 g/dL 6.0-8. 5 Not Available [facility] Department [address] [place] [address], [address], 03/12/2025 03:07:54 03/11/20 25 03/12/2025 COMP. METAB OLIC PANEL (14) albumin 4.6 g/dL 4.0-5. 0 Not Available [facility] Department [address] [place], [address], 03/12/2025 03:07:54 03/11/20 25 03/12/2025 COMP. METAB OLIC PANEL (14) globulin, total 2.4 g/dL 1.5-4. 5 Not Available [facility] Department [address] [place], [address], 03/12/2025 03:07:54 03/11/20 25 03/12/2025 COMP. METAB OLIC PANEL (14) A/G ratio 2.0 1.2-2. 2 Not Available [facility] Department [address] [place], [address], 03/12/2025 03:07:54 03/11/20 25 03/12/2025 COMP. METAB OLIC PANEL (14) bilirubin, total 0.3 mg/dL 0.0-1. 2 Not Available [facility] Department [address] [place], [address], 03/12/2025 03:07:54 03/11/20 25 03/12/2025 COMP. METAB OLIC PANEL (14) alkaline phosphatase 53 IU/L 44-121 Not Available [facility] Department [address] [place], [address], 03/12/2025 03:07:54 03/11/20 25 03/12/2025 COMP. METAB OLIC PANEL (14) AST (SGOT) 15 U/L 0-40 Not Available [facility] Department [address] [place], [address], 03/12/2025 03:07:54 03/11/20 25 03/12/2025 COMP. METAB OLIC PANEL (14) ALT (SGPT) 11 IU/L 0-32 Not Available [facility] Department [address] [place], [address], 03/12/2025 03:07:54 03/11/20 25 03/11/2025 CBC, PLATE LET, NO DIFFE RENTI AL WBC 6.4 x10e3 /uL 3.4-10 .8 Not Available [facility] Department [address] [place], [address], 03/12/2025 03:07:56 03/11/20 25 03/11/2025 CBC, PLATE LET, NO DIFFE RENTI AL RBC 4.59 x10e6 /uL 3.77-5 .28 Not Available [facility] Department [address] [place], [address], 03/12/2025 03:07:56 03/11/20 25 03/11/2025 CBC, PLATE LET, NO DIFFE RENTI AL hemoglobin 13.1 g/dL 11.1-1 5.9 Not Available [facility] Department [address] [place], [address], 03/12/2025 03:07:56 03/11/2003/11/2025 CBC, PLATE LET, NO DIFFE RENTI AL hematocrit 40.5 % 34.0-4 6.6 Not Available [facility] Department [address] [place], [address], 03/12/2025 03:07:56 03/11/2003/11/2025 CBC, PLATE LET, NO DIFFE RENTI AL MCV 88 fL 79-97 Not Available [facility] Department [address] [place], [address], 03/12/2025 03:07:56 03/11/2003/11/2025 CBC, PLATE LET, NO DIFFE RENTI AL MCH 28.5 pg 26.6-3 3.0 Not Available [facility] Department [address] [place], [address], 03/12/2025 03:07:56 03/11/2003/11/2025 CBC, PLATE LET, NO DIFFE RENTI AL MCHC 32.3 g/dL 31.5-3 5.7 Not Available [facility] Department [address] [place], [address], 03/12/2025 03:07:56 03/11/2003/11/2025 CBC, PLATE LET, NO DIFFE RENTI AL RDW 12.7 % 11.5-1 4.5 Not Available [facility] Department [address] [place], [address], 03/12/2025 03:07:56 03/11/2003/11/2025 CBC, PLATE LET, NO DIFFE RENTI AL platelets 238 x10e3 /uL 150-45 0 Mean Plate let Volum e 11.4 fL 8.9-1 2.7 N Not Available [facility] Department [address] [place], [address], 03/12/2025 03:07:56 03/11/2003/11/2025 CBC, PLATE LET, NO DIFFE JULITO AL NRBC 0 % 0-0 Not Available [facility] Department [address], [place], [address], 03/12/2025 03:07:56 03/11/2003/12/2025 TSH RFX ON ABNOR MAL TO FREE T4 TSH 1.260 uIU/m L 0.450- 4.500 Not Available [facility] ([facility]) [address] [facility], [place], [address], 03/12/2025 08:25:05 07/23/2007/25/2025 URINE CULTU RE, UROLO GY JAISON P urine culture, urology workup FINAL REPORT Not Available [facility] ([facility]) [address] [facility], [place], [address], 07/25/2025 07:15:47 07/23/2007/25/2025 URINE CULTU RE, UROLO GY JAISON P result 1 COMMEN T Mixed uroge nital marco antonio 3,000 Colon ies/m L Not Available [facility] ([facility]) [address] [facility], [place], [address], 07/25/2025 07:15:47 07/23/2007/23/2025 urina lysis , dipst [...] 07/23/2007/23/2025 urina lysis , dipst ick Specific [place] 1.015 Not Available In-Off ice Order Internal [...] DO Not Attach Compendium, Do Not Delete/merge, [id number] 07/23/2025 15:47:36 07/23/2007/23/2025 urina lysis , dipst ick Color Yellow Not Available In-Office Order Internal Use Only DO Not Attach Compendium DO Not Attach Compendium, Do Not Delete/merge, [id number] 07/23/2025 15:47:36 Result Notes None recorded. Problems Name Problem SNOMED Code Status Onset Date Resolution Date Notes Provider Name and Address Organization Details Recorded Time Contraception care management Active 2024 Leonid Vigil MD Attn: Accounting ,[address] [facility], [place], [address] , [facility] [place] 20:56:14 Overweight 063412704 Active 2024 Leonid Vigil MD Attn: Accounting ,[address] [place], [address] , [facility] [place] 20:56:16 Problem Notes None recorded. Procedures Surgical History Date Name Laterality Status Provider Name and Address Organization Details Recorded Time repair of cleft palate completed Zhane Koenig MA [facility] 12/18/2024 11:43:00 Imaging Results None recorded. Procedure [...] Recorded Body height Body mass index (BMI) [Percentile] Per age and sex Body mass index (BMI) Body weight Heart rate Respiratory rate Body temperature Systolic And Diastolic Provider Name and Address Organization Details Last Updated DateTime 5 149.86 cm 91 % 28.9 kg/m2 31563.4 1 g 84 /min 18 /min 98.3 [degF] 110/80 mm[Hg] Zhane Koenig MA [facility] 5 11:41:50 Date Recorded Body height Body mass index (BMI) Body mass index (BMI) [Percentile] Per age and sex Body weight Oxygen saturation Respiratory rate Body temperature Heart rate Systolic And Diastolic Provider Name and Address Organization Details Last Updated DateTime 5 149.86 cm 29.6 kg/m2 92 % 83004.5 9 g 99 % 16 /min 97.5 [degF] 82 /min 122/77 mm[Hg] Rose Marie Decker MA [facility] 5 14:09:36 Date Recorded Body height Body mass index (BMI) Body weight Respiratory rate Oxygen saturation Heart rate Body temperature Systolic And Diastolic Provider Name and Address Organization Details Last Updated DateTime 5 149.86 cm 30.3 kg/m2 98804.8 6 g 16 /min 99 % 70 /min 97.5 [degF] 116/80 mm[Hg] CELESTE [place] - [facility] 15:42:33 Social History Question Answer Notes LastModified by Organizat ion Details LastModified Time Tobacco Smoking Status Never Smoker CHINTAN Fish, [place] - [facility] 12/18/2024 11:42:49 Are You Blind Or Do [...] anxious, or unable to sleep at night)? [id number] Information not available 07/23/2025 Family History Nothing Reported. Medical History Condition Response Coronary Artery Disease N Other N Atrial Fibrillation N High Blood Pressure N Thyroid Problems N Kidney or Bladder Problems N GI Problems N Depression N COPD N Blood Clots N Have you had a mammogram in the last yea r? N Eating Disorder N Skin Problems N Anemia N Heart Attack ([place]) N Anxiety Disorder N Diabetes N Muscle, [...] conjugate PCV 7 4 completed Not Available [facility] 07/23/2025 15:25:22 DTaP-Hep B-IPV 4 completed Not Available [facility] 07/23/2025 15:25:22 Hib, unspecified formulation 4 completed Not Available [facility] 07/23/2025 15:25:22 Hib, unspecified formulation 5 completed Not Available [facility] 07/23/2025 15:25:22 IPV 5 completed Not Available [facility] 07/23/2025 15:25:22 DTaP 5 completed Not Available [facility] 07/23/2025 15:25:22 pneumococcal conjugate PCV 7 5 completed Not Available [facility] 07/23/2025 15:25:22 DTaP-Hep B-IPV 5 completed Not Available [facility] 07/23/2025 15:25:22 Hib, unspecified formulation 5 completed Not Available [facility] 07/23/2025 15:25:22 varicella 5 completed Not Available [facility] 07/23/2025 15:25:22 pneumococcal conjugate PCV 7 5 completed Not Available [facility] 07/23/2025 15:25:22 DTaP 6 completed Not Available [facility] 07/23/2025 15:25:22 Hib, unspecified formulation 6 completed Not Available [facility] 07/23/2025 15:25:22 MMR 6 completed Not Available [facility] 07/23/2025 15:25:22 pneumococcal conjugate PCV 7 6 completed Not Available [facility] 07/23/2025 15:25:22 Hep A, pediatric, unspecified formulation 6 completed Not Available [facility] 07/23/2025 15:25:22 Hep A, pediatric, unspecified formulation 8 completed Not Available [facility] 07/23/2025 15:25:22 DTaP-IPV 9 completed Not Available [facility] 07/23/2025 15:25:22 Novel [id number]-D7S3-03, preservative-free 9 completed Not Available [facility] 07/23/2025 15:25:22 influenza, split (incl. purified surface antigen) 9 completed [facility] Available [facility] 07/23/2025 15:25:22 influenza, split (incl. purified surface antigen) 0 completed Not Available [facility] 07/23/2025 15:25:22 Novel bvkovdyyq-G1S4-05, preservative-free 0 completed Not Available [facility] 07/23/2025 15:25:22 MMRV 0 completed Not Available [facility] 07/23/2025 15:25:22 meningococcal MCV4P 6 completed Not Available [facility] 07/23/2025 15:25:22 HPV9 6 completed Not Available [facility] 07/23/2025 15:25:22 Influenza, split virus, quadrivalent, PF 6 completed Not Available [facility] 07/23/2025 15:25:22 Tdap 6 completed Not Available [facility] 07/23/2025 15:25:22 HPV9 7 completed Not Available [facility] 07/23/2025 15:25:22 Influenza, split virus, quadrivalent, PF 9 completed Not Available [facility] 07/23/2025 15:25:22 Meningococcal MCV4O 2 completed Not Available [facility] 07/23/2025 15:25:22 Past Encounters Encounter ID Performer Location Encounter Start Date Encounter Closed Date Diagnosis/Indication Diagnosis SNOMED-CT Code Diagnosis ICD10 Code Diagnosis IMO Codes Diagnosis Note [id number] MD Faisal Ramirez [address] [place] [address] 07/25/2020 11:51:13 07/28/2020 07:23:53 Suspected COVID-19 553320331 Z03.89 [id number] MD Faisal Montes [address] [place] [phone] 01/30/2021 12:51:32 02/02/2021 07:10:54 Suspected COVID-19 294648990 Z03.89 Viral screening 13896967 4 Z11.52 D/w pt the current pandemic of COVID-19 and call for social isolation in order to blunt the curve and minimize risk and spread. Encouraged patient and family to take restrictio ns seriously. They have verbalized understand ing of such. [id number] MD Candelario Mathur [address] [place] [address] 12/18/2024 11:27:03 12/28/2024 13:20:59 Contraception care management 804720140 Z30.011 - Pt has alarm set for OCPs daily- Discussed risks and benefit Overweight 383614256 E66 .3 Chronic, uncontroll edBMI 28.9- Will further discuss lifestyle modificati on Venereal d isease screening 721815357 Z11.3 Acute, newNeed for screening- Discussed safe sex practices Dysuria 41323298 R30.0 Acute, new Vaginal discharge 508809 006 N89.8 Acute, new [id number] MD Sruthi Yu (Adult Med) [address] [place] [address] 03/11/2025 13:54:30 03/13/2025 16:01:56 Adult health examination 123388961 Z00.01 Encouraged routine [employer], vision, dental exams, well balanced diet. Overweight 888130299 E66 .3 advised low cholestero l diet, regular exercise and weight reduction. 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 Gastroesop hageal reflux disease without esophagitis 233540871 K21.9 752809 dwp diet changeswil l start ppi Chronic constipation 236 247502 K59.09 [id number] prn miralaxdwp diet changes Obese class I 7609573637 46829 E66.811 E66.3 [id number] advised low cholestero l diet, regular exercise and weight reduction. Health Concerns Section Related Observation LastModified by Organization Detai ls LastModified Time None Recorded Concern Status LastModified by Organization Details LastModified Time None Recorded Advance Directives Directive None Recorded Payers Insurance Date Sequence Insurance Name Policy Number Policy Bhandari Covered Member ID Bhandari Member ID Guarantor Name 12/05/2024 1 [facility] [id number] [employer] Carran[id number] 09/09/2025 1 [facility] - DOS ON OR AFTER 21 (MEDICAID REPLACEMENT - HMO) Elza February [id number] 07/11/2025 1 [place] Elza February [id number] Notes Date Note Type Note Provider Name and Address Organization Details Recorded Time 0 text/html COVID ScreeningReported by PatientHPIFor onset/duration of fever, patient reportsno fever. For associated symptoms, patient reportsno coughandno shortness of breath. COVID-19 Symptoms February 2020Reported by PatientUpper Respiratory SymptomsFor associated symptoms, patient reportsrunny nosebut reportsno sputum production,no wheezing,no vomiting,no diarrhea,no body aches,no nausea,no change in mental status,no hypotension, andno tachycardia. For covid-19 signs and symptoms, patient reportscough resolved,fever resolved,shortness of breath resolved,chills resolved,repeated shaking with chills resolved,muscle pain resolved,headache resolved,sore throat resolved,loss of taste or smell resolved,vomiting or diarrhea resolved,fatigue resolved, andanorexia resolved.ROS as noted in the HPI pt had a runny nose and congestion today and yesterday MELIDA YADAV NP Attn: Accounting,[address] [facility], [place], [address], [facility] 07/25/2020 13:53:23 1 text/html COVID ScreeningReported by PatientHPIFor onset/duration of fever, patient reportsno fever. For associated symptoms, patient reportsno coughandno shortness of breath. COVID-19 Symptoms February 2020Reported by PatientUpper Respiratory SymptomsFor covid-19 signs and symptoms, patient reportsnew loss of taste or smellbut reportscough resolved,fever resolved,shortness of breath resolved,chills resolved,repeated shaking with chills resolved,muscle pain resolved,headache resolved,sore throat resolved,vomiting or diarrhea resolved,fatigue resolved, andanorexia resolved. For associated symptoms, patient reportsrunny nosebut reportsno sputum production,no wheezing,no vomiting,no diarrhea,no body aches,no nausea,no change in mental status,no hypotension, andno tachycardia.ROS as noted in the HPI 15 yo female ,spoke via phone with C/O,pt had a runny nose and congestion, loss of taste, needs neg test to return back to school SHAHAB Lara NP Attn: Accounting, [facility], [place], [address], [facility] [place]21 15:34:03 5 text/html ROS as noted in the HPI 19 yo F with no PMH who presents with need for contraceptive counseling - Pt had hx of heavy menses and cramping- Had Nexplanon- PT is establishing care- Sexually active with boyfriend of 5 years- endorses dysuria and vaginal discharge-Denies urinary urgency or frequency -Patient believes that she has been having yeast infections- Has had a UTI and is concerned about her general health-Endorses malodorous yellow discharge - Pt has a mother figure and recommended she get on a low dose control with whom she lives with along with her boyfriend- Biological parents are not in the picture- [place] at [place] [employer] [place] No other issues or concerns today Leonid Vigil MD Attn: Accounting,[address] [place], [address], [facility] 12/27/2024 20:58:18 5 text/html Patient here to establish care. Pt cannot think of any concerns.saw psych today at [facility], was given rx but does not know name of it as she has not picked it up yet Aby Cooney APN, SIMONC Attn: Accounting,[address] [facility], [place], [address], [facility] 03/11/2025 14:35:57 5 text/html pt states she feels pressure in [...] but states she gets chronic uti Aby Cooney APN, FIBREGL[employer] LAMINATOR-C Attn: Accounting,[address] [facility], [place], [address], [facility] 07/23/2025 16:12:31 OBGyn Episode No OBEpisode recorded.
== END 2025-09-09 12:41 | disposition home or self-care (01) ==
PROVIDERS: Emergency Provider Registered Nurse; PCP Nurse Practitioner Family
DX: J02.9 Acute pharyngitis, unspecified (principal)
CPT/HCPCS: 87081; 87880; 99213; G0463